=== PATIENT | female | born 1980 | race Caucasian/White ===

== ENCOUNTER → 2019-11-23 16:09 | Outpatient (BNVA) | payer SELFPAY | PROVIDERS: Family Provider Family Medicine; PCP Family Medicine; Visit Provider Obstetrics & Gynecology Female Pelvic Medicine and Reconstructive Surgery | DX: Z12.4 Encounter for screening for malignant neoplasm of cervix (principal); N92.0 Excessive and frequent menstruation with regular cycle | CPT/HCPCS: 81003 ==

== ENCOUNTER → 2019-11-30 15:08 | Outpatient (BNVA) | payer SELFPAY | PROVIDERS: Family Provider Family Medicine; PCP Family Medicine; Referring Provider Obstetrics & Gynecology Female Pelvic Medicine and Reconstructive Surgery; Visit Provider Obstetrics & Gynecology Female Pelvic Medicine and Reconstructive Surgery | DX: N92.0 Excessive and frequent menstruation with regular cycle (principal); N85.2 Hypertrophy of uterus | CPT/HCPCS: 76830 ==

== ENCOUNTER → 2020-01-17 13:26 | Outpatient (BNVA) | payer OTHER, SELFPAY | PROVIDERS: Family Provider Family Medicine; PCP Family Medicine; Visit Provider Obstetrics & Gynecology | DX: N93.9 Abnormal uterine and vaginal bleeding, unspecified (principal) | CPT/HCPCS: 81025 ==

== ENCOUNTER → 2020-03-28 10:27 | Outpatient (BNVA) | payer OTHER, SELFPAY | PROVIDERS: Family Provider Family Medicine; PCP Family Medicine; Visit Provider Nurse Practitioner Psychiatric/Mental Health | DX: Z79.899 Other long term (current) drug therapy (principal) | CPT/HCPCS: 80053; 80061; 83036 ==

== ENCOUNTER → 2020-08-14 10:35 | Outpatient (BNVA) | payer SELFPAY | PROVIDERS: Family Provider Family Medicine; PCP Family Medicine; Visit Provider Family Medicine | DX: R30.0 Dysuria (principal) | CPT/HCPCS: 81000; 81003; 87077; 87086; 87184 ==

== ENCOUNTER → 2020-12-19 10:24 | Outpatient (BNVA) | payer SELFPAY | PROVIDERS: Family Provider Family Medicine; PCP Family Medicine; Visit Provider Nurse Practitioner | DX: M25.562 Pain in left knee (principal) | CPT/HCPCS: 73562 ==

== ENCOUNTER → 2021-05-06 10:02 | Outpatient (BNVA) | payer OTHER, SELFPAY | PROVIDERS: Family Provider Family Medicine; PCP Family Medicine; Visit Provider Nurse Practitioner Psychiatric/Mental Health | DX: Z79.899 Other long term (current) drug therapy (principal) | CPT/HCPCS: 80053; 80061; 83036; 85025 ==

== ENCOUNTER 2021-12-27 13:39 | Outpatient (CLI) | payer OTHER, SELFPAY ==
--- NOTE | 2021-12-27 13:50 | MM_ITS ---
WS: [id number] BILATERAL SCREENING 3D TOMOSYNTHESIS DIGITAL MAMMOGRAM WITH CAD HISTORY: SCREENING COMPARISON: None available. Bilateral CC and MLO views submitted. Computer aided detection analyzed. Breast composition: The breasts are heterogeneously dense, which may obscure small masses. No suspici ous masses, microcalcifications or architectural distortion. Scattered asymmetries with no associated mass within each breast. No suspicious calcification. MM/[place] [id number] IMPRESSION: BI-RADS: 2-Benign FOLLOW UP: 1 Year Follow-up
== END 2021-12-27 13:40 | disposition home or self-care (01) ==
PROVIDERS: Family Provider Family Medicine; PCP Family Medicine Adult Medicine
DX: Z12.31 Encounter for screening mammogram for malignant neoplasm of breast (principal)
CPT/HCPCS: 77063; 77067

== ENCOUNTER 2022-05-14 16:47 | Outpatient (CLI) | payer OTHER, SELFPAY ==
[2022-05-14 17:45] LABS: Alanine Aminotransferase 13 U/L (0-33); Albumin Level 3.7 g/dL (3.5-5.2); Alkaline Phosphatase 58 U/L (35-105); Anion Gap 17.6 (5-19); Aspartate Amino Transferase 13 U/L (0-32); Blood Urea Nitrogen 7 mg/dL (6-20); Calcium 8.3 mg/dL (8.5-10.5); Carbon Dioxide 22 mmol/L (22-29); Chloride 102 mmol/L (98-107); Chol HDL Ratio 3.88 mg/dL (0.0-4.40); Cholesterol 132 mg/dL (0-200); Globulin 3.4 g/dL (1.3-4.6); Glomerular Filtration Rate 92.7 mL/min (90-130); Glucose 82 mg/dL (65-115); HDL Cholesterol 34 mg/dL (60-100); LDL Cholesterol Calculated 73 mg/dL (50-129); LDL HDL Ratio 2.15 RATIO (0.00-3.22); Osmolality Calculated 283 mOsm/kg (285-295); Potassium 3.6 mmol/L (3.5-5.1); Sodium 138 mmol/L (136-145); Total Bilirubin 0.2 mg/dL (0.15-1.2); Total Protein 7.1 g/dL (6.6-8.7); Triglycerides 125 mg/dL (0-150)
[2022-05-14 18:08] LABS: Estmated Average Glucose 128; Hemoglobin A1C 6.1 % (4.0-6.0)
== END 2022-05-14 16:48 | disposition home or self-care (01) ==
LOC: LAB 16:54
PROVIDERS: Family Provider Family Medicine; PCP Family Medicine Adult Medicine; Visit Provider Nurse Practitioner Psychiatric/Mental Health
DX: Z79.899 Other long term (current) drug therapy (principal)
CPT/HCPCS: 80053; 80061; 83036

== ENCOUNTER 2022-07-15 14:52 | Emergency (ER) | payer SELFPAY ==
[2022-07-15 15:44] VITALS: BP 156/125; PULSE 68; RESP 18; TEMP 36.7; O2SAT 98; BMI 32.3
--- NOTE | 2022-07-15 17:30 | ED_ITS ---
HPI - General Adult General: Chief complaint: General Medical Stated complaint: UC sent for possible blood clot Time Seen by Provider: 07/15/22 17:06 History of Present Illness: Patient reports reddened area on her right upper abdomen lower rib cage that she noticed approximately a week ago. She reports it has been slowly worsening and started to hurt today. She did try to go to her doctor's office today. She reports that they told her she needed to go to the ER because it could be a blood clot. She reports that they did not examine her there. Review of Systems Const: Denies: fever(s), chills or body aches Skin/Breast: Reports: other (Pain, redness, swelling to an area on the right upper abdomen) PFSH ED PFSH: Medical History Abdominal cramping Abdominal pain Asthma Autism spectrum disorder Dyslipidemia Hearing impaired Major depressive disorder, recurrent episode, moderate with anxious distress Menorrhagia with regular cycle ALKA on CPAP POTS (postural orthostatic tachycardia syndrome) Psychiatric care PTSD (post-traumatic stress disorder) Surgical History delivery delivered X3 Hx of tonsillectomy 1986 Family History Father Cancer, Onset Age: 52 Prostate with [place] to bones and brain Grandmother Cancer, Onset Age: 35 breast Cancer still living at age 90 Grandmother Cancer, Onset Age: 30 pancreatic cancer Social History Smoking and tobacco status: never smoked Alcohol intake: never Marital status: Number of children: 3 Current occupational status: unemployed 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 There is a pinpoint area centrally that appears to be a blackhead. No fluctuance appreciated. Course Vital Signs: Vital signs: Vital Signs Temperature 98.1 F 07/15/22 15:44 Pulse Rate 68 07/15/22 15:44 Respiratory Rate 18 07/15/22 15:44 Blood Pressure 156/125 07/15/22 15:44 Pulse Oximetry 98 07/15/22 15:44 Oxygen Delivery Me thod 07/15/22 15:44 MDM - General Adult Medical Decision Making Consider abscess versus cellulitis. Advised the patient that I am not concerned about a DVT in this area of her body. There is no fluctuance noted on palpation at this time. Will place patient on antibiotic and encourage warm moist compresses 3-4 times daily to help with this to drain. Follow-up with primary care provider in 48 to 72 hours if symptoms are persisting or not improving. Return to the ER for new or worsening symptoms. Discharge Plan Discharge Patient Disposition: Home Clinical Impression: Abscess Condition: Stable Prescriptions: New cephalexin 500 mg capsule 500 mg PO BID 7 Days Qty: 14 0RF No Action quetiapine [Seroquel] 25 mg tablet 25 mg PO BID PRN (Reason: agitation/anxiety) Qty: 180 2RF Rx Instructions: Take one tablet twice per day as needed for agitation/anxiety albuterol sulfate 90 mcg/actuation HFA aerosol inhaler 2 puff INHALATION Q6H PRN (Reason: shortness of breath) Qty: 17 3RF calcium polycarbophil [FiberCon] 625 mg tablet 1,250 mg PO BID Qty: 120 5RF dicyclomine 20 mg tablet 20 mg PO .q8 PRN (Reason: abdominal cramping/pain) Qty: 30 2RF clonidine HCl 0.1 mg tablet 0.1 mg PO DAILY PRN (Reason: tics) Qty: 30 1RF Rx Instructions: Take half to one tablet daily as needed for tics quetiapine [Seroquel XR] 150 mg tablet extended release 24 hr 150 mg PO .7 pm Qty: 90 2RF Rx Instructions: Take one tablet at 7 pm norgestimate-ethinyl estradiol [Sprintec (28)] 0.25-35 mg-mcg tablet 1 tab PO DAILY Qty: 28 0RF Rx Instructions: RBVO Dr. Isaac/Sal Goodman RN atorvastatin 10 mg tablet See Rx Instructions .ROUTE .COMPLEX Qty: 30 5RF Dose Instruction: TAKE 1 TABLET BY MOUTH EVERY DAY FOR cholesterol lowering Rx Instructions: TAKE 1 TABLET BY MOUTH EVERY DAY FOR cholesterol lowering metoprolol tartrate 50 mg tablet 50 mg PO BID Qty: 180 2RF amlodipine 5 mg tablet 5 mg PO DAILY Qty: 90 3RF Discharge Orders: Discharge ED (Routine); Ordered 07/15/22 Ordered By: Ynes Otto Referrals: Blanco Vega MD [Primary Care Provider] - Discharge Diet: Usual diet Discharge Activity: Resume usual activity Patient Instructions: Abscess (ED) Activity Restrictions/Additional Instructions: Take antibiotics as directed and complete the entire prescription. Use warm moist compresses to the area of concern 3-4 times per day. This will help blood flow to the area. The abscess may start to drain and that is okay. Follow-up with your primary care provider if symptoms or not resolving over the next 48 hours. Return to the ER for any new or worsening symptoms. 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
== END 2022-07-15 17:42 | disposition home or self-care (01) ==
PROVIDERS: Emergency Provider Nurse Practitioner Family; PCP Family Medicine Adult Medicine
DX: L02.211 Cutaneous abscess of abdominal wall (principal)
CPT/HCPCS: 99283

== ENCOUNTER 2023-05-21 06:22 | Inpatient (IN) | payer SELFPAY ==
[2023-05-21] VITALS (33 sets, daily range): BP systolic 118–187; BP diastolic 72–108; PULSE 90–125; RESP 12–25; TEMP 36.1–37.3; O2SAT 94–98; BMI 32.3
--- NOTE | 2023-05-21 06:25 | ED_ITS ---
HPI - General Adult General: Chief complaint: Altered Mental Status Stated complaint: AMS Time Seen by Provider: 05/21/23 06:23 Source: EMS Mode of arrival: EMS Limitations: altered mental status History of Present Illness: 42-year-old female brought in by EMS with altered mental status evidently she w as found on the floor by her around 5 AM decreased responsiveness. Initially EMS reported she would answer question shaking her head yes or no but did not have any response when we seen her. She was spitting evidently nurses had placed a mask on her. Initially when I seen the patient and took the mask off and asked the nurse about the mask immediately after the nurse mentioned her spitting she spit. Cannot get her to respond in any way. Her eyes are open but she does not respond verbally. She does respond to noxious stimuli. There is no evidence of injury no active bleeding no skin breakdown ulceration or deformity no evidence of head trauma. When repositioned to a sitting position by the nurse and myself in the gurney she does support her head. Patient continues to spit up saliva. arrived stated that yesterday she had complained of symptoms of bladder infection took some [id number] Azo's for that. This morning he found her underneath the massage table she had moved things out from underneath that they had used this table in quite some time and she was laying under it seemingly rigid with dried saliva on the right side of her cheek. He was unable to wake her and ultimately called 911. Onset (ago): unknown Review of Systems General: Reports: ROS unobtainable due to mental status [facility] ED PFSH: Medical History Agoraphobia with panic attacks Asthma Autism spectrum disorder Dyslipidemia Hearing impaired Major depressive disorder, recurrent episode, moderate with anxious distress Menorrhagia with regular cycle ALKA on CPAP POTS (postural orthostatic tachycardia syndrome) Psychiatric care PTSD (post-traumatic stress disorder) Surgical History delivery delivered X3 Hx of tonsillectomy 1986 Family History Father Cancer, Onset Age: 52 Prostate with [place] to bones and brain Grandmother Cancer, Onset Age: 35 breast Cancer still living at age 90 Grandmother Cancer, Onset Age: 30 pancreatic cancer Social History Smoking and tobacco status: never smoked Alcohol intake: never Substance/Drug Use: never Marital status: Number of children: 3 Current occupational status: unemployed 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 Reproductive History: Para: 3 Physical Exam Const: GENERAL APPEARANCE: lethargic ORIENTATION/CONSCIOUSNESS: Yes confused and Yes lethargic HENMT: COMMON NORMALS: normocephalic, atraumatic and hearing grossly normal bilaterally HEAD & SCALP: normocephalic and atraumatic Resp: COMMON NORMALS: normal respiratory effort, No retractions, No use of accessory muscles and clear to auscultation bilaterally AUSCULTATION: clear to auscultation bilaterally Cardio: COMMON NORMALS: regular rate, regular rhythm and No murmurs present (Cardio) RATE: regular rate RHYTHM: regular rhythm GI: COMMON NORMALS: Soft to palpation and No hepatosplenomegaly present AUSCULTATION: Yes normoactive bowel sounds PALPATION: Yes Soft to palpation, No Tenderness to palpation present (GI), No Guarding due to palpation present (GI) and Yes No hepatosplenomegaly present Extremity: COMMON NORMALS: normal to inspection, capillary refill normal, no clubbing, cyanosis or edema, no calf tenderness and no pedal edema Neuro: SENSORIUM/ORIENTATION: Yes lethargic Skin: COMMON NORMALS: no rashes or lesions noted GENERAL SKIN EXAM: no rashes or lesions noted Course Vital Signs: Vital signs: Vital Signs Temperature 97.0 F L 05/21/23 06:25 Pulse Rate 105 H 05/21/23 13:00 Respiratory Rate 15 05/21/23 13:00 Blood Pressure 155/83 05/21/23 14:00 Pulse Oximetry 96 05/21/23 13:00 Oxygen Delivery Me thod Room Air 05/21/23 10:56 [facility] - General Adult Medical Decision Making Patient was able to be coached out of some of the behaviors like spitting episodes she does have an elevated white count but no signs of infection CT of the abdomen and chest were negative chest x-ray negative. Long discussion with Dr. Stoddard reviewed the chart together will admit to the hobs may ultimately need to psych consultation. She does have some metabolic acidosis we have given her fluids we will need to repeat labs on the floor. I also talk to Dr. Gomez she recommends EEG which were making arrangements for. Talk to her the patient's at the bedside he did not see anything that looks like she had had a grand mall seizure but he thought maybe she had some sort of absents seizure where she stared off into space. Medical Records I reviewed the patient's medical records. Lab Data I reviewed the patient's lab results. 05/21/23 06:37 05/21/23 11:48 Laboratory Results WBC 21.14 10^3/uL (3.29-11.43) H 05/21/23 06:37 RBC 5.18 10^6/uL (3.85-5.65) 05/21/23 06:37 Hgb 14.30 g/dL (11.27-16.99) 05/21/23 06:37 Hct 43.1 % (36-47) 05/21/23 06:37 MCV 83.2 fl (85-98) L 05/21/23 06:37 MCH 27.6 pg (27-33) 05/21/23 06:37 MCHC 33.2 g/dL (30-55) 05/21/23 06:37 RDW 13.1 % (12.1-15.1) 05/21/23 06:37 Plt Count 531 10^3/cmm (157-399) H 05/21/23 06:37 MPV 10.1 fL (7.4-10.4) 05/21/23 06:37 Neut % (Auto) 85.1 % 05/21/23 06:37 Lymph % (Auto) 10.5 % 05/21/23 06:37 Martin % (Auto) 3.7 % 05/21/23 06:37 Eos % (Auto) 0.0 % 05/21/23 06:37 Baso % (Auto) 0.2 % 05/21/23 06:37 Neut # (Auto) 17.98 10^3/uL (1.8-7.7) H 05/21/23 06:37 Lymph # (Auto) 2.2 10^3/uL (0.8-4.8) 05/21/23 06:37 Martin # (Auto) 0.8 10^3/uL (0.2-0.9) 05/21/23 06:37 Eos # (Auto) 0.0 10^3/uL (0.0-0.8) 05/21/23 06:37 Baso # (Auto) 0.1 10^3/uL (0.0-0.1) 05/21/23 06:37 Nucleated RBC % (auto) 0 % 05/21/23 06:37 Nucleated RBCs # 0.0 /100WBC 05/21/23 06:37 Specimen Type Arterial 05/21/23 07:30 Sample Site Radial, right 05/21/23 07:30 ABG pH 7.36 (7.35-7.45) 05/21/23 07:30 ABG pCO2 31.3 mmHg (35-45) L 05/21/23 07:30 ABG pO2 94.9 mmHg (80.0-100.0) 05/21/23 07:30 ABG HCO3 17.8 mmol/L (22-26) L 05/21/23 07:30 ABG O2 Saturation 98.1 05/21/23 07:30 ABG Base Excess -6.3 mmol/L (-2.0-2.0) L 05/21/23 07:30 [facility] Test Pos 05/21/23 07:30 A-a O2 Gradient 2.0 mmHg (5-10) L 05/21/23 07:30 Hematocrit 44.8 % (37-47) 05/21/23 07:30 Hgb O2 Saturation 97.0 % (95-100) 05/21/23 07:30 Carboxyhemoglobin 0.7 %THgb (0.4-20.1) 05/21/23 07:30 Methemoglobin 0.3 % (0.4-1.5) L 05/21/23 07:30 Total Hemoglobin 14.6 g/dL (12-16) 05/21/23 07:30 Sodium 137.0 mmol/L (131-143) 05/21/23 07:30 Potassium 3.5 mmol/L (3.5-5.0) 05/21/23 07:30 Glucose 156.0 mg/dL (70-115) H 05/21/23 07:30 Ionized Calcium 1.2 mmol/L (1.1-1.4) 05/21/23 07:30 O2 Delivery Device Room air 05/21/23 07:30 FiO2 21.0 % 05/21/23 07:[address] Reporter ID Amh 05/21/23 07:30 Sodium 132 mmol/L (136-145) L 05/21/23 06:37 Potassium 3.6 mmol/L (3.5-5.1) 05/21/23 06:37 Chloride 93 mmol/L (98-107) L 05/21/23 06:37 Carbon Dioxide 18 mmol/L (22-29) L 05/21/23 06:37 Anion Gap 24.6 (5-19) H 05/21/23 06:37 BUN 13 mg/dL (6-20) 05/21/23 06:37 Creatinine 0.8 mg/dL (0.5-0.9) 05/21/23 06:37 GFR Calculation 79.0 mL/min (90-130) L 05/21/23 06:37 Glucose 155 mg/dL (65-115) H 05/21/23 06:37 POC Glucose 169 mg/dL (70-110) H 05/21/23 06:36 Calculated Osmolality 277 mOsm/kg (285-295) L 05/21/23 06:37 Lactic Acid 2.6 mmol/L (0.5-2.2) H 05/21/23 06:37 Lactic Acid (Sepsis) 1.1 mmol/L (0.5-2.2) 05/21/23 09:33 Calcium 9.4 mg/dL (8.5-10.5) 05/21/23 06:37 Magnesium 1.7 mg/dL (1.7-2.3) 05/21/23 06:37 Total Bilirubin 0.6 mg/dL (0.15-1.2) 05/21/23 06:37 AST 17 U/L (0-32) 05/21/23 06:37 ALT 13 U/L (0-33) 05/21/23 06:37 Alkaline Phosphatase 85 U/L (35-105) 05/21/23 06:37 Ammonia 21 umol/L (11-51) 05/21/23 08:32 Creatine Kinase 70 U/L (26-192) 05/21/23 06:37 Troponin T Baseline 11 ng/L (0-10) H 05/21/23 06:37 Troponin T 120 Minute 10.70 ng/L (0-10) H 05/21/23 07:55 Delta Troponin T -0.30 ABS# (0-10) L 05/21/23 07:55 Total Protein 8.5 g/dL (6.6-8.7) 05/21/23 06:37 Albumin 4.6 g/dL (3.5-5.2) 05/21/23 06:37 Globulin 3.9 g/dL (1.3-4.6) 05/21/23 06:37 Lipase 31 U/L (13-60) 05/21/23 06:37 TSH 0.46 uIU/mL (0.27-4.20) 05/21/23 07:55 HCG, Qual Negative (Negative) 05/21/23 06:37 Urine Color Yellow (Yellow) 05/21/23 07:30 Urine Appearance Hazy (CLEAR) A 05/21/23 07:30 Urine pH 5 (5-7) 05/21/23 07:30 Ur Specific [place] 1.030 (1.005-1.030) 05/21/23 07:30 Urine Protein 1+ (Negative) H 05/21/23 07:30 Urine Glucose (UA) Norm (Normal) 05/21/23 07:30 Urine Ketones 3+ (Negative) H 05/21/23 07:30 Urine Blood Neg (Negative) 05/21/23 07:30 Urine Nitrate Negative (Negative) 05/21/23 07:30 Urine Bilirubin Neg (Negative) 05/21/23 07:30 Urine Urobilinogen Norm mg/dL (Negative) 05/21/23 07:30 Ur Leukocyte Esterase Negative (Negative) 05/21/23 07:30 Urine RBC 0-4 /hpf (0-2) H 05/21/23 07:30 Urine WBC 5-10 /hpf (0-5) H 05/21/23 07:30 Ur Squamous Epith Cells 5-10 /hpf (0-5) H 05/21/23 07:30 Amorphous Sediment Not Reportable 05/21/23 07:30 Urine Bacteria 1+ /hpf (NONE) H 05/21/23 07:30 Hyaline Casts 15-25 /lpf H 05/21/23 07:30 Urine Mucus 1+ /hpf 05/21/23 07:30 Salicylates < 0.3 mg/dL (3-10) L 05/21/23 06:37 Urine Opiates Screen Negative ng/mL (Negative) 05/21/23 07:30 Acetaminophen < 5.0 ug/mL (10-30) L 05/21/23 06:37 Ur Barbiturates Screen Negative ng/mL (Negative) 05/21/23 07:30 Ur Phencyclidine Scrn Negative ng/mL (Negative) 05/21/23 07:30 Ur Amphetamines Screen Negative ng/mL (Negative) 05/21/23 07:30 U Benzodiazepines Scrn Negative ng/mL (Negative) 05/21/23 07:30 Urine Cocaine Screen Negative ng/mL (Negative) 05/21/23 07:30 U Marijuana (THC) Screen Positive ng/mL (Negative) H 05/21/23 07:30 Ethyl Alcohol < 10 mg/dL (0-10) 05/21/23 06:37 Serum Ketones Negative (Negative) 05/21/23 06:37 Discharge Plan Discharge Patient Disposition: Admitted As Inpatient Admit Provider: Artem Pham Clinical Impression: Acute encephalopathy, Metabolic acidosis, Autism spectrum disorder Condition: Stable Coding Level of Care Code ED [employer]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
--- NOTE | 2023-05-21 06:35 | XR_ITS ---
WS: [id number] Exam: XR chest 1V portable [id number] Date/Time of Exam: 05/21/2023 6:35 AM Reason For Exam: dyspnea/cough Comparison 10/07/2018. Findings: The lungs are clear and fully expanded. Costophrenic angles are sharp. No infiltrates. Bronchovascula r relief appears normal. Cardiac silhouette is unremarkable. Bony elements are intact. IMPRESSION: Unremarkable chest radiograph.
--- NOTE | 2023-05-21 06:35 | CT_ITS ---
WS: [id number] CT HEAD NONCONTRAST HISTORY: AMS TECHNIQUE: Contiguous axial imaging performed through the brain in 2.5 mm imaging. Bone and soft tiss ue windows. Sagittal and coronal reformats reviewed. All CT scans at [facility] use at least one of these dose optimization techniques: automated exposure control; mA and/or kV adjustment per pa tient size (includes targeted exams where dose is matched to clinical indication); or iterative recon struction. DLP: 1257.43 mGy.cm COMPARISON: 06/11/2010 Mild motion artifact. No areas of hemorrhage or edema identified. Small areas of acute blood product may be obscured with this amount of motion. No atrophy or prior infarcts or herniation. Ventricles: Normal size with no hydrocephalus. Mild inferior displacement of the cerebellar tonsils. Paranasal sinuses: Moderate mucoperiosteal thickening throughout the ethmoid and sphenoid sinuses. Sm all amount of mucoperiosteal thickening in the RIGHT maxillary sinus. Mucous retention cyst LEFT maxi llary sinus. Mastoid air cells: Well pneumatized. Calvarium and scalp: Skull is intact with no soft tissue edema or swelling. IMPRESSION: 1. Imaging is slightly degraded by motion artifact. 2. No hemorrhage or edema identified. 3. Mild cerebellar ectopia. No obstructive hydrocephalus. 4. Moderate mucoperiosteal sinus disease.
--- NOTE | 2023-05-21 06:36 | ECG_ITS ---
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 Measurements Intervals [place] Rate: 113 P: 62 OK: 118 QRS: 7 QRSD: 86 T: 7 QT: 310 QTc: 426 Interpretive Statements SINUS TACHYCARDIA WITH SHORT OK INTERVAL POSSIBLE LEFT ATRIAL ENLARGEMENT [-0.1mV P-WAVE IN V1/V2] NONSPECIFIC T-WAVE ABNORMALITY Compared to ECG 10/07/2018 17:02:54 Short OK interval now present T-wave abnormality now present Sinus rhythm no longer present Electronically Signed On 05-21-2023 10:13:23 CDT by Luke Jaime M.D. [email or web address]
[2023-05-21 06:39] LABS: Glucose Point of Care 169 mg/dL (70-110)
[2023-05-21 06:47] LABS: Basophils # 0.1 10^3/uL (0.0-0.1); Basophils % 0.2 %; Hematocrit 43.1 % (36-47); Lymphocytes # 2.2 10^3/uL (0.8-4.8); Lymphocytes % 10.5 %; Mean Corpuscular HGB Conc 33.2 g/dL (30-55); Mean Corpuscular Hemoglobin 27.6 pg (27-33); Mean Corpuscular Volume 83.2 fl (85-98); Mean Platelet Volume 10.1 fL (7.4-10.4); Monocytes # 0.8 10^3/uL (0.2-0.9); Monocytes % 3.7 %; Neutrophils # 17.98 10^3/uL (1.8-7.7); Neutrophils % 85.1 %; Nucleated Red Blood Cells % 0 %; Platelet Count 531 10^3/cmm (157-399); Red Blood Count 5.18 10^6/uL (3.85-5.65); Red Cell Distribution Width 13.1 % (12.1-15.1); White Blood Count 21.14 10^3/uL (3.29-11.43)
[2023-05-21 06:55] LABS: Ketone (Acetest) Serum Negative (Negative)
[2023-05-21 06:58] LABS: HCG, Serum Qual Negative (Negative)
[2023-05-21 07:04] LABS: Lactic Sepsis W/Reflex 2.6 mmol/L (0.5-2.2)
[2023-05-21 07:05] LABS: Alanine Aminotransferase 13 U/L (0-33); Albumin Level 4.6 g/dL (3.5-5.2); Alkaline Phosphatase 85 U/L (35-105); Anion Gap 24.6 (5-19); Aspartate Amino Transferase 17 U/L (0-32); Blood Urea Nitrogen 13 mg/dL (6-20); Calcium 9.4 mg/dL (8.5-10.5); Carbon Dioxide 18 mmol/L (22-29); Chloride 93 mmol/L (98-107); Globulin 3.9 g/dL (1.3-4.6); Glucose 155 mg/dL (65-115); Lipase 31 U/L (13-60); Magnesium 1.7 mg/dL (1.7-2.3); Osmolality Calculated 277 mOsm/kg (285-295); Potassium 3.6 mmol/L (3.5-5.1); Sodium 132 mmol/L (136-145); Total Bilirubin 0.6 mg/dL (0.15-1.2); Total Protein 8.5 g/dL (6.6-8.7); Troponin(5th) Baseline 11 ng/L (0-10)
[2023-05-21 07:06] LABS: Acetaminophen < 5.0 ug/mL (10-30); Alcohol Level < 10 mg/dL (0-10); Salicylate < 0.3 mg/dL (3-10)
[2023-05-21 07:42] LABS: ABG PCO2 31.3 mmHg (35-45); ABG PH Result 7.36 (7.35-7.45); Arterial Blood Gas Hematocrit 44.8 % (37-47); Base Excess ABG -6.3 mmol/L (-2.0-2.0); Blood Gas Allen Test Pos; Blood Gas Operator Identificat AMH; Blood Gas Sample Site Radial, right; Blood Gas Sample Type Arterial; Carboxyhemoglobin 0.7 %THgb (0.4-20.1); HCO3 ABG 17.8 mmol/L (22-26); Ionized Calcium Level - ABG 1.2 mmol/L (1.1-1.4); Methemoglobin 0.3 % (0.4-1.5); Oxygen Device ROOM AIR; Oxygen Saturation ABG 98.1; PO2 ABG 94.9 mmHg (80.0-100.0); Potassium Level - ABG 3.5 mmol/L (3.5-5.0); Total Hemoglobin 14.6 g/dL (12-16)
[2023-05-21] MEDS: sodium chloride 0.9% 1,000 ML 999 ML IV (07:42)
[2023-05-21] MEDS: promethazine 25 mg/mL SDV 1 mL IM (08:09)
[2023-05-21 08:11] LABS: Protein Urine 1+ (Negative); Urine Appearance Hazy (CLEAR); Urine Color Yellow (Yellow); pH Urine 5 (5-7)
[2023-05-21 08:12] LABS: Add Urine Microscopic? YES; Amphetamines Screen Urine Negative (Negative); Bacteria Urine 1+ /hpf; Barbiturates Screen Urine Negative (Negative); Benzodiazepines Screen Urine Negative (Negative); Bilirubin Urine Neg (Negative); Blood Urine Neg (Negative); Cocaine Screen Urine Negative (Negative); Glucose Urine UA Norm (Normal); Ketones Urine 3+ (Negative); Leukocyte Esterase Urine Negative (Negative); Nitrate Urine Negative (Negative); Opiate Screen Urine Negative (Negative); PCP Screen Urine Negative (Negative); RBC Urine 0-4 /hpf (0-2); THC Screen Urine Positive (Negative); Urobilinogen Urine Norm (Negative)
[2023-05-21 08:13] LABS: Add Urine Culture? No; Hyaline Casts Urine 15-25 /lpf; Mucus Urine 1+ /hpf
[2023-05-21] MEDS: cefTRIAXone 1,000 MG in sodium chloride 0.9% (plus) 50 ML 100 MG IV (08:24)
--- NOTE | 2023-05-21 08:28 | PC.NURSE ---
DR PRATT ORDERED VERSED FOR CONSCIOUS SEDATION DUE TO PATIENT DECREASED LOC, CONFUSED, AND SPITTING. CT WAS DELAYED DUE TO PATIENT SPITTING AND CT DECLINED DUE TO PRECAUTION FOR ASPIRATION. PATIENT HAS BEEN FOAMING/SPITTING AT THE MOUTH. NURSE HAD IV VERSED READY AND PATIENT OPENED HER EYES BUT NOT VERBAL. NURSE FOLLOWED PATIENT TO CT TO EMPLOYMENT AND CLAIMS AIDE PATIENT TO HOLD STILL FOR CT AND NOT TO SPIT. PATIENT DID NOT SPIT WHILE CT WAS BEING DONE. AFTER CT WAS DONE AND PATIENT WAS TRANSFER BACK TO ED BED, PATIENT STARTED FOAMING/SPITTING AGAIN.
[2023-05-21 08:33] LABS: Reflex Lactate Order REFLEX LACTIC ORDERD
--- NOTE | 2023-05-21 08:36 | ECG_ITS ---
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 Measurements Intervals [place] Rate: 113 P: 54 NV: 132 QRS: 4 QRSD: 83 T: -18 QT: 364 QTc: 499 Interpretive Statements SINUS TACHYCARDIA MINIMAL VOLTAGE CRITERIA FOR LVH, CONSIDER NORMAL VARIANT [MEETS CRITERIA IN ONE OF: R(aVL), S(V1), R(V5), R(V5/V6)+S(V1)] MODERATE T-WAVE ABNORMALITY, CONSIDER ANTEROLATERAL ISCHEMIA [-0.1+ mV T-WAVE IN V3-V6] Compared to ECG 05/21/2023 06:25:45 Possible ischemia now present Short NV interval no longer present T-wave abnormality still present Electronically Signed On 05-21-2023 10:13:50 CDT by Luke Jaime M.D. [id number]
[2023-05-21 08:39] LABS: Creatine Phosphokinase 70 U/L (26-192)
--- NOTE | 2023-05-21 08:41 | PC.PHAR ---
pt unable to verify medications-pts states he is unsure of what all medications the pt takes-medications entered are meds that [facility] states they have filled- notes are made in the pharmacy comments of last filled dates-[facility] [place] [facility] rx on hold for dicyclomine 20mg q8h prn written 12/23/22 and fibercon 625mg 2 tabs bid prn written 01/23/23-[facility] states clonidine 0.1mg daily prn tics filled 07/29/23 90d/s and quetiapine 25mg bid prn filled 07/29/23 90d/s states both have refills-niacin er 250mg last filled 12/23/22 20d/s-
[2023-05-21 08:54] LABS: Ammonia 21 umol/L (11-51)
--- NOTE | 2023-05-21 09:03 | CT_ITS ---
WS: [id number] CT ABDOMEN AND PELVIS NONCONTRAST HISTORY: Abdominal pain TECHNIQUE: Imaging performed through the abdomen and pelvis. Coronal and sagittal reformats are submi tted. All CT scans at [facility] use at least one of these dose optimization techniques: auto mated exposure control; mA and/or kV adjustment per patient size (includes targeted exams where dose is matched to clinical indication); or iterative reconstruction. DLP: 983.38 mGy.cm COMPARISON: None available. Lower thorax: Lung bases are clear. Visualized heart is normal. No hiatal hernia. Liver: Normal size liver. No mass or bile duct dilatation. Gallbladder: Gallbladder is not identified. Pancreas: Normal size and attenuation. Normal pancreatic duct. No pancreatitis or mass. Spleen: Normal. Adrenal glands: Normal. No mass. Right kidney: Normal size kidney. Low-attenuation 2.2 x 1.4 cm mass in the central renal pelvis. This may be a parapelvic cyst. There is no renal obstruction. Left kidney: Normal size kidney with no mass or hydronephrosis. Aorta: Normal abdominal aorta, no aneurysm or atherosclerosis. No free fluid, intraperitoneal air or significant lymphadenopathy. GI tract: Normal noncontrast imaging of the stomach, small bowel and colon. No obstruction or wall th ickening. Appendix is not definitely identified. No inflammatory or secondary findings of appendiciti s. Abdominal wall: Negative. No hernia. Pelvis: Nondistended urinary bladder. There is a Roblero catheter in the bladder. Uterus and ovaries ar e identified and unremarkable by CT. Osseous structures: Unremarkable. IMPRESSION: 1. No acute abdominal or pelvic abnormalities are identified. 2. No free air or ascites. 3. Roblero catheter in a nondistended bladder. 4. No renal obstruction. 5. Low-attenuation lesion in the RIGHT kidney measures 2.2 x 1.4 cm. This is probably a cyst. This c an be further evaluated by ultrasound.
--- NOTE | 2023-05-21 09:15 | PC.NURSE ---
PER [place] [facility] VERSED SINCE PATIENT OPENED HER EYES
[2023-05-21] MEDS: OLANZapine 10 mg VIAL 5 MG IM ×2 (09:55→21:43)
[2023-05-21] MEDS: sodium chloride 0.9% 1,000 ML 175 ML IV ×2 (09:58→21:43)
[2023-05-21 09:59] LABS: Lactic Acid level (Lactate) 1.1 mmol/L (0.5-2.2)
--- NOTE | 2023-05-21 10:07 | P.HP_ITS ---
Providers/Chief Complaint Admitting Physician: Artem Pham MD Primary Care Provider: Blanco Vega MD Chief Complaint: AMS History of Present Illness Georgette Reid is a 42 year old female presents to the hospital by EMS with her with decreased responsiveness. He reports that yesterday she was doing well, but did complain of slight concerns of a UTI, and took some Azo. When they went to bed he thought everything was okay. This morning at 5 AM he awoke, she was not in bed. She had cleaned out some material underneath the massage table and was laying there with spittle on the right side of her mouth. She was not responding normally to him, just spitting repetitively. He called EMS. Since arriving in the emergency department she has not been verbally responsive. She has occasionally stopped spitting on instruction, to allow for a CT. She was able to open her eyes slightly for me for short amount of time. She was able to move her upper extremities, both, spontaneously while I was in the room. No history of any recent migraines, illnesses. Apparently saw neurology in the past for staring spells. Has never been on any seizure medicine. Past medical history significant for autistic spectrum disorder, migraines, hypertension, depression, agoraphobia, POTS. reports she has a significant stressful life at home. They also have 3 children with autistic spectrum disorder. 1 dose of Rocephin, 1 g, given empirically in the emergency department. Versed was not given, order held. Review of Systems General: Reports: ROS unobtainable due to medical condition Medications/Allergies Home Medications Medication Instructions Recorded Confirmed Last Taken Type amlodipine 5 mg tablet 5 mg PO DAILY #90 tabs 07/04/22 05/21/23 Unknown Rx clonidine HCl 0.1 mg tablet 0.1 mg PO DAILY PRN tics #90 tabs 07/29/22 05/21/23 Unknown Rx albuterol sulfate 90 mcg/actuation 2 puff inhalation Q6H PRN 12/23/22 05/21/23 Unknown Rx aerosol inhaler shortness of breath #17 grams atorvastatin 10 mg tablet 10 mg PO DAILY 90 days #90 tabs 12/23/22 05/21/23 Unknown Rx montelukast 10 mg tablet 10 mg PO DAILY Asthma #90 tabs 12/23/22 05/21/23 Unknown Rx (Singulair) calcium polycarbophil 625 mg 1,250 mg PO BID PRN for abdomen 01/23/23 05/21/23 Unknown History tablet (FiberCon) health metoprolol tartrate 50 mg tablet 50 mg PO BID #180 tabs 03/16/23 05/21/23 Unknown Rx dicyclomine 20 mg tablet 20 mg PO Q8H PRN abdominal 05/21/23 05/21/23 Unknown History cramping/pain escitalopram oxalate 10 mg tablet 10 mg PO QAM 05/21/23 05/21/23 Unknown History (Lexapro) niacin 250 mg tablet,extended See Rx Instructions .Route 05/21/23 05/21/23 Unknown History release .COMPLEX Low HDL cholesterol quetiapine 25 mg tablet 25 mg PO BID PRN ANXIETY/AGITATION 05/21/23 05/21/23 Unknown History Allergies Allergy/AdvReac Type Severity Reaction Status Date / Time No Known Allergies Allergy Verified 01/06/23 15:18 PFSH Acute PFSH: Medical History Agoraphobia with panic attacks Asthma Autism spectrum disorder Dyslipidemia Hearing impaired Major depressive disorder, recurrent episode, moderate with anxious distress Menorrhagia with regular cycle ALKA on CPAP POTS (postural orthostatic tachycardia syndrome) Psychiatric care PTSD (post-traumatic stress disorder) Surgical History delivery delivered X3 Hx of tonsillectomy 1986 Family History Father Cancer, Onset Age: 52 Prostate with Silvia to bones and brain Grandmother Cancer, Onset Age: 35 breast Cancer still living at age 90 Grandmother Cancer, Onset Age: 30 pancreatic cancer Social History Smoking and tobacco status: never smoked Alcohol intake: never Substance/Drug Use: never Marital status: Number of children: 3 Current occupational status: unemployed 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 Vital signs appear stable. HEENT: Atraumatic normocephalic. Pupils equally round. I do not notice any nystagmus. Oropharynx appears clear although exam was difficult. She withdrew significantly during the exam. Neck is supple no lymphadenopathy thyromegaly Cardiovascular tachycardic, regular, no murmur Lungs clear no wheezing or crackles Abdomen is soft. Bowel sounds are noted. No obvious organomegaly exam is deferred, catheter noted Extremities no cyanosis clubbing or edema, cap refill brisk Skin no rash Neuro: I was not able to get her to cooperate with exam. I do not see any obvious neurological deficits with observation. Urinary Catheter Management: Roblero: Cath Placed During This Visit: yes Urinary Catheter Date of Insertion: 05/21/23 Urinary Catheter Time of Insertion: 07:32 Data 05/21/23 06:37 05/21/23 06:37 Other Labs: ABG pH of 7.36, PCO2 31, PO2 95 on room air Anion gap 25 Calcium, albumin normal Troponin 11 with repeat of 10 Lactic acid 2.6 with repeat of 1.1 Lipase 31 normal hCG negative Creatinine kinase normal at 70 Urinalysis with 5-10 whites but 5-10 squamous UDS positive for THC Ammonia level is normal Abdomen pelvis CT low attenuated lesion right kidney likely cyst otherwise normal Head CT no acute findings, reviewed by me Chest x-ray reviewed by me no infiltrate EKG reviewed by me demonstrates sinus tachycardia, normal axis, nonspecific ST-T wave changes Blood cultures were obtained Micro: Microbiology 05/21/23 07:55 Blood Culture - Preliminary Blood SPECIMEN COLLECTED 05/21/23 07:51 Blood Culture - Preliminary Blood SPECIMEN COLLECTED A&P Assessment and plan (1) Acute encephalopathy: Patient presents with acute encephalopathy. Differential includes infection, although thought less likely. Could also include partial seizure, or even functional disorder. Secondary to her continued agitation, spitting, Zyprexa 5 mg IM was ordered. Admit observation at this point to ICU for close monitoring Arrange for EEG. Seizure precautions Hydration N.p.o. for now Check TSH (2) Metabolic acidosis: Etiology not determined. Hydrating currently. Recheck BMP. Hopefully we will see acidosis clearing. Doubt other alcohol ingestion. (3) Hyponatremia: Mild. Continue to follow. Check TSH (4) Positive urine drug screen: Urine drug screen positive for THS. reports she occasionally takes Gummies. Plan History of POTS. Restart metoprolol when able. According to records this has been well-tolerated. Multiple other medical problems as outlined in past medical history Full code SCDs for DVT prophylaxis. Currently pharmacologic anticoagulation contraindicated, possibly pending need for further procedures. Will be reev aluated intermittently. Attestations Medical Necessity Statement*: Will need less than 2 midnight stay for evaluation and treatment of acute encephalopathy. Diagnoses Acute encephalopathy G93.40 Metabolic acidosis E87.20 Hyponatremia E87.1 Positive urine drug screen R82.5 Time Spent (min) 52
[2023-05-21 11:08] LABS: Thyroid Stimulating Hormone 0.46 uIU/mL (0.27-4.20)
[2023-05-21 12:19] LABS: Blood Urea Nitrogen 10 mg/dL (6-20); Calcium 8.9 mg/dL (8.5-10.5); Carbon Dioxide 20 mmol/L (22-29); Chloride 100 mmol/L (98-107); Creatinine Clr Calc Pharmacy 139.9913; Glomerular Filtration Rate 110.2 mL/min (90-130); Glucose 99 mg/dL (65-115); Osmolality Calculated 279 mOsm/kg (285-295); Sodium 135 mmol/L (136-145)
[2023-05-21 12:22] LABS: Anion Gap 18.6 (5-19); Potassium 3.6 mmol/L (3.5-5.1); Troponin 5 6HR 14.37 ng/L (0-10)
[2023-05-21 12:23] LABS: Troponin 5 6HR Delta 3.37 ng/L (0-12)
--- NOTE | 2023-05-21 15:31 | FL_ITS ---
WS: [id number] LUMBAR PUNCTURE CLINICAL INFORMATION: encephalopathy COMPARISON: None. TECHNIQUE: Informed consent: The procedure and its potential risk and complications were discussed with the sejal ent. Verbal and written consent was obtained. Timeout: A timeout was performed to confirm correct patient, procedure, and site. Patient was prepped and draped in the usual sterile fashion. Lidocaine 1% was used for local anesthes ia. Utilizing fluoroscopic guidance, a 3.5 inch 22-gauge spinal needle was advanced into the subarach noid space at L3-L4 via LEFT oblique sublaminar approach. Free flow of clear CSF was obtained. 6-8 cc of clear CSF was collected and sent the lab for further analysis. FLUOROSCOPIC TIME: 0min [id number] # of spot films: 1 IMPRESSION: Fluoroscopically guided lumbar puncture. No immediate complications
[2023-05-21] MEDS: LORazepam 2 mg/mL INJ 1 mL 1 MG IVP (16:02)
[2023-05-21 17:22] LABS: Cyto Order Verification No Order
[2023-05-21 17:24] LABS: Mononuclear WBC CSF % 0 % (50-90); Polynuclear Cells ,CSF # 0.001 10^3/uL (0-10); Polynuclear WBC CSF % 100 % (0-10); Red Blood Cell CSF 0 10^3/uL (0-0); White Blood Cell CSF 1 /uL (0-5)
[2023-05-21 17:26] LABS: Appearance CSF CLEAR (CLEAR); Color CSF COLORLESS (COLORLESS); Pathology Referral Yes
--- NOTE | 2023-05-21 17:50 | P.CONIM_ITS ---
Providers/Reason For Consult Consulting Physician/Specialty*: dr hammonds Reason for Consult*: Encephalopathy/repetitive spitting Attending Physician: Artem Hammonds MD Primary Care Provider: Blanco Vega MD History of Present Illness History of Present Illness Georgette Reid is a 42 year old female who presented with atypical seizure- like episodes. There was a strong probability based upon her behavior in the emergency department these were functional but she had a metabolic acidosis and increased white count and Dr. Miguel and I agreed that it would be best for her to be hospitalized. We worked her in for an emergency EEG this afternoon and I examined her. She had atypical findings suggesting functional disorder including forced closure of the eyes, alternating flaccidity and muscle tone that was normal and multiple behaviors that suggested functional problems. She was found on the floor by her around 5:00 this morning. Initially she would answer questions by shaking her head appropriately but when she got into the emergency department she had continuous spitting behavior to the point that the nurses put a mask on her face to limit how far the saliva would travel. Her told Dr. Miguel that he found her underneath the massage table and she had moved everything out from under the table and had saliva all over her cheek. I saw her in 2009 for staring spells and headaches. She felt like someone was pulling her head to the left and she could not move her eyes. Her said she would blackout for 15 or 20 seconds but she felt like she was conscious. More frequently she has spells in front of her children and reports that her children cry and are afraid that her mom he is going to . She had a headache after many of these. Her EEG was normal. MRI showed a Chiari I malformation. 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 Her headaches improved with Depakote. Her staring spells resolved on that medication. I have no other records on her. She follows with Dr. Vega for a variety of complaints and in May 2021 he suggest that she had POTS. That diagnosis was confirmed by Dr. Jaime. She has followed with [facility] for anxiety in the past and an eating disorder. She has a diagnosis of autism. She has posttraumatic stress. Review of Systems Narrative: Review of systems not obtainable as the patient would not communicate. Medications/Allergies Home Medications Medication Instructions Recorded Confirmed Last Taken Type amlodipine 5 mg tablet 5 mg PO DAILY #90 tabs 07/04/22 05/21/23 Unknown Rx clonidine HCl 0.1 mg tablet 0.1 mg PO DAILY PRN tics #90 tabs 07/29/22 05/21/23 Unknown Rx albuterol sulfate 90 mcg/actuation 2 puff inhalation Q6H PRN 12/23/22 05/21/23 Unknown Rx aerosol inhaler shortness of breath #17 grams atorvastatin 10 mg tablet 10 mg PO DAILY 90 days #90 tabs 12/23/22 05/21/23 Unknown Rx montelukast 10 mg tablet 10 mg PO DAILY Asthma #90 tabs 12/23/22 05/21/23 Unknown Rx (Singulair) calcium polycarbophil 625 mg 1,250 mg PO BID PRN for abdomen 01/23/23 05/21/23 Unknown History tablet (FiberCon) health metoprolol tartrate 50 mg tablet 50 mg PO BID #180 tabs 03/16/23 05/21/23 Unknown Rx dicyclomine 20 mg tablet 20 mg PO Q8H PRN abdominal 05/21/23 05/21/23 Unknown History cramping/pain escitalopram oxalate 10 mg tablet 10 mg PO QAM 05/21/23 05/21/23 Unknown History (Lexapro) niacin 250 mg tablet,extended See Rx Instructions .Route 05/21/23 05/21/23 Unknown History release .COMPLEX Low HDL cholesterol quetiapine 25 mg tablet 25 mg PO BID PRN ANXIETY/AGITATION 05/21/23 05/21/23 Unknown History Allergies Allergy/AdvReac Type Severity Reaction Status Date / Time No Known Allergies Allergy Verified 01/06/23 15:18 Current Medications Generic Name Dose Route Start Last Admin Trade Name Freq PRN Reason Stop Dose Admin Sodium Chloride 1,000 mls @ 150 mls/hr 05/21/23 09:45 05/21/23 09:58 Sodium Chloride 0.9% IV 175 mls/hr .Q6H40M EMILIANA Administration PFSH Acute PFSH: Medical History Agoraphobia with panic attacks Asthma Autism spectrum disorder Dyslipidemia Hearing impaired Major depressive disorder, recurrent episode, moderate with anxious distress Menorrhagia with regular cycle ALKA on CPAP POTS (postural orthostatic tachycardia syndrome) Psychiatric care PTSD (post-traumatic stress disorder) Surgical History delivery delivered X3 Hx of tonsillectomy 1986 Family History Father Cancer, Onset Age: 52 Prostate with Silvia to bones and brain Grandmother Cancer, Onset Age: 35 breast Cancer still living at age 90 Grandmother Cancer, Onset Age: 30 pancreatic cancer Social History Smoking and tobacco status: never smoked Alcohol intake: never Substance/Drug Use: never Marital status: Number of children: 3 Current occupational status: unemployed 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 Mental status exam: She would not follow any commands for me but after she got into the EEG suite, she held her head up so that the auto repair technician could attach the leads to her scalp. She closed her eyes tightly so that I could not open her eyes. She was limp as a noodle when I attempted to sit her up and then extended her to trunk slightly to fight this sitting. Cranial nerves: I could not get a look at her eyes as she had vigorous eye closure. She was successfully spitting small amounts of saliva. Behind her lids her eye movements appear random and voluntary. Sensory/motor: I did not feel comfortable doing nailbed stimulation as the patient appeared to be conscious. She did not respond to holding her hand or moving her limbs about. She seemed flaccid but then held her head up for the auto repair technician. Deep tendon reflexes: 2+ throughout. Plantar response flexor bilaterally Gait not tested. We attempted to stand her up and she bent her knees and would have sat on the floor had we not held her up HEENT: Normocephalic. She smells ketotic Neck: Supple. Her neck is not stiff Chest: Clear to auscultation Cardiovascular: S1 and S2 normal without murmur or gallop Abdomen deferred Extremities no rash. Urinary Catheter Management: Roblero: Cath Placed During This Visit: yes Urinary Catheter Date of Insertion: 05/21/23 Urinary Catheter Time of Insertion: 07:32 Data 05/21/23 06:37 05/21/23 11:48 Micro: Microbiology 05/21/23 07:55 Blood Culture - Preliminary Blood SPECIMEN COLLECTED 05/21/23 07:51 Blood Culture - Preliminary Blood SPECIMEN COLLECTED CT Head: My impression: Her CT head was unremarkable. MRI of the brain from 06/17/2010 showed a cystic lesion in the left centrum semiovale. I do not see that on her current CAT scan. She still has low-lying tonsils. A&P Assessment and plan (1) Metabolic acidosis: Metabolic acidosis and I wonder about starvation in a patient with previous hist ory of anorexia nervosa. She smells starved. Dr. Hammonds and I agree that this patient has not previously presented with functional neurologic disorder and that she should be considered to have a metabolic encephalopathy or other cause of encephalopathy until proven otherwise. Dr. Hammonds ordered spinal fluid to be obtained through radiology and it looks like that was completed. CSF was clear and colorless with 1 white cell so there is no sign of COMPOSING MACHINE OPERATOR/TENDER inflammation and that is comforting. I think this is functional versus metabolic. Appropriate work-up is in progress. Her EEG was performed stat and shows normal awake background. (2) Acute encephalopathy: ORDERING PHYSICIAN: Dr. Hammonds/Becca. REASON FOR STUDY: Acute encephalopathy with repetitive spitting behavior. STUDY: This was a 21 channel digital electroencephalogram performed using the 10-20 international system of electrode placement. This study was non-sleep deprived and the patient was awake. Photic stimulation was included. FINDINGS: The waking background was characterized by well-modulated posterior alpha at 9-10 hertz, symmetric and of moderate voltage. Photic stimulation produced a bilateral driving response in the occipital leads without any evidence of a photoconvulsive response. She was not cooperative with hyperventilation No focal, lateralizing or epileptiform activity was seen. IMPRESSION: This was a normal EEG with no epileptiform features to explain the patient's repetitive spitting behavior. There was no focal slowing to implicate epilepsy partialis continua to explain her behavior. Duration of EE minutes (3) Major depressive disorder, recurrent episode, moderate with anxious distress: Coding Level of Care Code Acute Code for [facility] Diagnoses Metabolic acidosis E87.20 Acute encephalopathy G93.40 Major depressive disorder, recurrent episode, moderate with anxious distress F33.1
[2023-05-21 18:13] LABS: Glucose CSF 80 mg/dL (40-70); Total Protein CSF 26 mg/dL (15-45)
[2023-05-22] VITALS (21 sets, daily range): BP systolic 115–166; BP diastolic 68–97; PULSE 74–116; RESP 13–22; TEMP 36.6–37.3; O2SAT 93–97
[2023-05-22] MEDS: sodium chloride 0.9% 1,000 ML 175 ML IV ×3 (01:44→17:56)
[2023-05-22 04:45] LABS: Basophils # 0.1 10^3/uL (0.0-0.1); Basophils % 0.6 %; Eosinophils # 0.2 10^3/uL (0.0-0.8); Eosinophils % 1.4 %; Hematocrit 37.4 % (36-47); Lymphocytes # 2.9 10^3/uL (0.8-4.8); Lymphocytes % 23.5 %; Mean Corpuscular HGB Conc 32.4 g/dL (30-55); Mean Corpuscular Hemoglobin 27.8 pg (27-33); Mean Corpuscular Volume 85.8 fl (85-98); Mean Platelet Volume 10.4 fL (7.4-10.4); Monocytes # 1.2 10^3/uL (0.2-0.9); Monocytes % 9.3 %; Neutrophils # 8.07 10^3/uL (1.8-7.7); Neutrophils % 64.8 %; Nucleated Red Blood Cells % 0 %; Platelet Count 365 10^3/cmm (157-399); Red Blood Count 4.36 10^6/uL (3.85-5.65); Red Cell Distribution Width 13.5 % (12.1-15.1); White Blood Count 12.46 10^3/uL (3.29-11.43)
[2023-05-22 05:06] LABS: Alanine Aminotransferase 10 U/L (0-33); Albumin Level 3.4 g/dL (3.5-5.2); Alkaline Phosphatase 64 U/L (35-105); Anion Gap 14.7 (5-19); Aspartate Amino Transferase 14 U/L (0-32); Blood Urea Nitrogen 11 mg/dL (6-20); Calcium 8.4 mg/dL (8.5-10.5); Carbon Dioxide 22 mmol/L (22-29); Chloride 108 mmol/L (98-107); Globulin 2.6 g/dL (1.3-4.6); Glomerular Filtration Rate 92.2 mL/min (90-130); Glucose 74 mg/dL (65-115); Magnesium 1.9 mg/dL (1.7-2.3); Osmolality Calculated 290 mOsm/kg (285-295); Potassium 3.7 mmol/L (3.5-5.1); Sodium 141 mmol/L (136-145); Total Bilirubin 0.6 mg/dL (0.15-1.2)
[2023-05-22] MEDS: enoxaparin 40 mg/0.4 mL Syringe SUBCUT (08:24)
--- NOTE | 2023-05-22 08:48 | PM.PN ---
Subjective Subjective: Georgette is a little bit better this morning. She awakens to my voice, and can follow directions. She seems to move all of her extremities slow, slower on the left but it is difficult to have an accurate clinical exam. She is able to open her mouth, stick her tongue out. She still producing a little bit of spittle. She denies any complaints of pain other than some pain in her lower back with a lumbar puncture was done. Medications: Reviewed: Yes Vitals/I&O/Wt Last Vital Signs Temp 99 F 05/22/23 03:37 Pulse 74 05/22/23 06:00 Resp 18 05/22/23 05:00 BP 162/97 05/22/23 05:00 Pulse Ox 94 05/22/23 03:00 O2 Del Method Room Air 05/22/23 05:30 05/21/23 05/22/23 05/22/23 22:59 06:59 14:59 Intake Total 1000 / 2050 708.750 / 2758.750 Output Total 900 / 900 400 / 1300 Balance 100 / 1150 308.750 / 1458.750 Weight last 48 hrs Weight 89.902 kg Weight 90.718 kg Physical Exam Narrative: General exam much more alert and responsive No neurologic: Moving all extremities. I have some difficulty getting her to move her left upper extremity as vigorously. No nystagmus. Neck is supple no lymphadenopathy thyromegaly Cardiovascular tachycardic, regular, no murmur Lungs clear no wheezing or crackles Abdomen is soft. Bowel sounds are noted. No obvious organomegaly Extremities no cyanosis clubbing or edema, cap refill brisk Urinary Catheter Management: Roblero: Cath Placed During This Visit: yes Reason for Continuing Indwelling Catheter: Accurate Measurement of Urinary Output in Critically Ill Patients Urinary Catheter Date of Insertion: 05/21/23 Urinary Catheter Time of Insertion: 07:32 Data 05/22/23 03:40 05/22/23 03:40 Micro: Microbiology 05/21/23 07:55 Blood Culture - Preliminary Blood NEGATIVE TO DATE 05/21/23 07:51 Blood Culture - Preliminary Blood NEGATIVE TO DATE A&P Assessment and plan (1) Acute encephalopathy: Patient presents with acute encephalopathy. At this point no evidence for infection. CT abdomen, urinalysis, chest x-ray, lumbar puncture does not reveal any evidence of infection. Partial seizure excluded with normal EEG during events of abnormality Appreciate neurology consultation She did receive several doses of Zyprexa IM yesterday. She appears to be better, but is still not verbal. Arrange for therapy consultations. Changed to regular admission Psychiatric consultation Continue hydration (2) Metabolic acidosis: Resolved (3) Hyponatremia: Mild. TSH normal, resolved (4) Positive urine drug screen: Urine drug screen positive for THS. reports she occasionally takes Gummies. Plan History of POTS. Restart metoprolol when able. According to records this has been well-tolerated. Multiple other medical problems as outlined in past medical history Full code SCDs for DVT prophylaxis. Lovenox added today. Can likely transfer to the floor today. Attestations Medical Necessity Statement*: Needs continued hospitalization for acute encephalopathy, question catatonia with need for psychiatric evaluation and continued treatment. Diagnoses Acute encephalopathy G93.40 Metabolic acidosis E87.20 Hyponatremia E87.1 Positive urine drug screen R82.5 Time Spent (min) 31
[2023-05-23] VITALS (9 sets, daily range): BP systolic 132–156; BP diastolic 81–90; PULSE 86–124; RESP 15–18; TEMP 36.6–37; O2SAT 90–96
[2023-05-23] MEDS: sodium chloride 0.9% 1,000 ML 100 ML IV (05:14)
[2023-05-23 05:25] LABS: Basophils # 0.1 10^3/uL (0.0-0.1); Basophils % 0.4 %; Eosinophils # 0.1 10^3/uL (0.0-0.8); Eosinophils % 0.6 %; Hematocrit 39.3 % (36-47); Lymphocytes # 1.9 10^3/uL (0.8-4.8); Lymphocytes % 11.5 %; Mean Corpuscular HGB Conc 31.8 g/dL (30-55); Mean Corpuscular Hemoglobin 27.3 pg (27-33); Mean Corpuscular Volume 85.8 fl (85-98); Mean Platelet Volume 9.8 fL (7.4-10.4); Monocytes # 1.3 10^3/uL (0.2-0.9); Monocytes % 7.8 %; Neutrophils % 79.2 %; Nucleated Red Blood Cells % 0 %; Platelet Count 383 10^3/cmm (157-399); Red Blood Count 4.58 10^6/uL (3.85-5.65); Red Cell Distribution Width 13.1 % (12.1-15.1); White Blood Count 16.42 10^3/uL (3.29-11.43)
[2023-05-23 06:00] LABS: Alanine Aminotransferase 9 U/L (0-33); Albumin Level 3.3 g/dL (3.5-5.2); Alkaline Phosphatase 76 U/L (35-105); Anion Gap 19.5 (5-19); Aspartate Amino Transferase 15 U/L (0-32); Blood Urea Nitrogen 5 mg/dL (6-20); Calcium 8.4 mg/dL (8.5-10.5); Carbon Dioxide 16 mmol/L (22-29); Chloride 104 mmol/L (98-107); Globulin 3.3 g/dL (1.3-4.6); Glomerular Filtration Rate 110.2 mL/min (90-130); Glucose 84 mg/dL (65-115); Magnesium 1.7 mg/dL (1.7-2.3); Osmolality Calculated 278 mOsm/kg (285-295); Potassium 3.5 mmol/L (3.5-5.1); Sodium 136 mmol/L (136-145); Total Bilirubin 0.7 mg/dL (0.15-1.2); Total Protein 6.6 g/dL (6.6-8.7)
[2023-05-23] MEDS: acetaminophen 325 mg Tablet 650 MG PO (07:56)
[2023-05-23] MEDS: enoxaparin 40 mg/0.4 mL Syringe SUBCUT (07:58)
[2023-05-23] MEDS: amlodipine 5 mg Tablet PO (08:05)
[2023-05-23] MEDS: atorvastatin 40 mg Tablet 20 MG PO (08:05)
[2023-05-23] MEDS: metoprolol tartrate 50 mg Tablet PO (08:05)
--- NOTE | 2023-05-23 08:30 | W.PM.PSYCONS ---
Providers/Reason for Consult Consulting Physican/Specialty*: Isai Jimenez MD/Psychiatry Reason for Consult*: atypical seizures Attending Physician: Artem Pham MD Primary Care Provider: Blanco Vega MD Psych Consult HPI History of Present Illness Georgette Reid is a 42 year old female admitted on 05/21/2023 with concerns of mental status changes and unusual spitting behavior and the patient being selectively unable to answer questions. Patient had been observed briefly yesterday and had been unable to communicate with no meaningful conversation appreciated. However, this morning she appeared to wake up and was communicative fully. She was a good historian on interview. She had stated that she had felt like she was trapped and had some knowledge of being able to hear conversations but felt that she was unable to answer. She had reported having limited memory regarding any details of her hospitalization thus far. The patient on interview had endorsed a history of autistic spectrum disorder with an extended history of having struggles with appropriate peer relationships with significant restricted patterns and problems with sensory issues including tactile issues and texture issues in regards to eating. She had reported a restricted pattern of eating only specific foods. She had not endorsed a past history recently of stereotypies. She had reported that she often perseverated and had difficulties with rigid thinking. She had reported that she had active problems with anxiety and stated that various medicines had been tried to help her with anxiety without any benefit. She had reported previously having been prescribed Seroquel by her [facility] therapist Arcelia Sloan and stated that she had stopped this medication nearly 3 months ago. She reported no recent stressors that may have contributed to her hospitalization. She had reported history of sleep apnea and reported that she had been compliant with her CPAP but had not had it adjusted or evaluated recently. She had alluded to having some excessive daytime sleepiness and fatigue at times. She denied any depressed mood at this time. She had denied any history of trauma nor had she endorsed a history of psychosis. The patient reported that she had had these unusual staring spells in the presence of her children who had expressed concern that something bad was going to happen to her mother. Inpatient psychiatric history: None Outpatient psychiatric history: She had a past history of follow-up through the [facility] for at least 10 years. She had endorsed some medication trials but is currently not on any psychotropic medications. Previous records indicate a history of PTSD autistic spectrum disorder and depression. Previous medication trials have included clonidine, Lexapro, and Seroquel. Medical history: History of POTS, hypertension, headaches, obstructive sleep apnea, dyslipidemia, asthma, fibromyalgia, Irina 1 malformation Surgeries: None reported Allergies: No known drug allergies Legal history: None Drug and alcohol history: None Social history: The patient has 3 children that had been diagnosed in the autistic spectrum. 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 She has been for several years. She had been diagnosed with autism during her childhood. She had reported that she herself had been homeschooled. She did not endorse any history of sexual physical or emotional abuse on interview. She had reported having some mild difficulties with learning particularly in mathematics. She reports growing up in [facility]. She reports having a supportive who is currently a shoe laster. Meds Home Medications and Allergies Home Medications Medication Instructions Recorded Confirmed Last Taken Type amlodipine 5 mg tablet 5 mg PO DAILY #90 tabs 07/04/22 05/21/23 Unknown Rx clonidine HCl 0.1 mg tablet 0.1 mg PO DAILY PRN tics #90 tabs 07/29/22 05/21/23 Unknown Rx albuterol sulfate 90 mcg/actuation 2 puff inhalation Q6H PRN 12/23/22 05/21/23 Unknown Rx aerosol inhaler shortness of breath #17 grams atorvastatin 10 mg tablet 10 mg PO DAILY 90 days #90 tabs 12/23/22 05/21/23 Unknown Rx montelukast 10 mg tablet 10 mg PO DAILY Asthma #90 tabs 12/23/22 05/21/23 Unknown Rx (Singulair) calcium polycarbophil 625 mg 1,250 mg PO BID PRN for abdomen 01/23/23 05/21/23 Unknown History tablet (FiberCon) health metoprolol tartrate 50 mg tablet 50 mg PO BID #180 tabs 03/16/23 05/21/23 Unknown Rx dicyclomine 20 mg tablet 20 mg PO Q8H PRN abdominal 05/21/23 05/21/23 Unknown History cramping/pain escitalopram oxalate 10 mg tablet 10 mg PO QAM 05/21/23 05/21/23 Unknown History (Lexapro) niacin 250 mg tablet,extended See Rx Instructions .Route 05/21/23 05/21/23 Unknown History release .COMPLEX Low HDL cholesterol quetiapine 25 mg tablet 25 mg PO BID PRN ANXIETY/AGITATION 05/21/23 05/21/23 Unknown History Allergies Allergy/AdvReac Type Severity Reaction Status Date / Time No Known Allergies Allergy Verified 01/06/23 15:18 Current Medications Current Medications Generic Name Dose Route Start Last Admin Trade Name Freq PRN Reason Stop Dose Admin Acetaminophen 650 mg 05/21/23 10:55 05/23/23 07:56 Acetaminophen 325 Mg Tablet PO 650 mg Q6H PRN Administration MILD PAIN Amlodipine Besylate 5 mg 05/23/23 09:00 05/23/23 08:05 Amlodipine 5 Mg Tablet PO 5 mg DAILY EMILIANA Administration Atorvastatin Calcium 20 mg 05/23/23 09:00 05/23/23 08:05 Atorvastatin 40 Mg Tablet PO 20 mg DAILY EMILIANA Administration Enoxaparin Sodium 40 mg 05/22/23 07:45 05/23/23 07:58 Enoxaparin 40 Mg/0.4 Ml Syringe SUBCUT 40 mg Q24H EMILIANA Administration Escitalopram Oxalate 10 mg 05/23/23 06:00 05/23/23 05:16 Escitalopram 10 Mg Tablet PO Not Given QAM EMILIANA Sodium Chloride 1,000 mls @ 100 mls/hr 05/21/23 09:45 05/23/23 05:14 Sodium Chloride 0.9% IV 100 mls/hr .Q10H EMILIANA Administration Metoprolol Tartrate 50 mg 05/22/23 18:00 05/23/23 08:05 Metoprolol Tartrate 50 Mg Tablet PO 50 mg BID EMILIANA Administration PFSH NPU PFSH: Medical History Agoraphobia with panic attacks Asthma Autism spectrum disorder Dyslipidemia Hearing impaired Major depressive disorder, recurrent episode, moderate with anxious distress Menorrhagia with regular cycle ALKA on CPAP POTS (postural orthostatic tachycardia syndrome) Psychiatric care PTSD (post-traumatic stress disorder) Surgical History delivery delivered X3 Hx of tonsillectomy 1986 Family History Father Cancer, Onset Age: 52 Prostate with Atkinson to bones and brain Grandmother Cancer, Onset Age: 35 breast Cancer still living at age 90 Grandmother Cancer, Onset Age: 30 pancreatic cancer Social History Smoking and tobacco status: never smoked Alcohol intake: never Substance/Drug Use: never Marital status: Number of children: 3 Current occupational status: unemployed 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 There was no evidence of any abnormal involuntary motor movements tics or tremors appreciated. There was no clear evidence of stereotypies. Her speech was monotone and quality with normal rate and volume. Her thought process was linear logical and goal-directed. Her thought content showed no evidence of active homicidal or suicidal ideation. There was no clear evidence of delusional thinking. She did not appear to be responding to internal stimuli. Her attention span appeared much improved. Her mood was described as okay. Her affect appeared euthymic. Her insight appeared at this time limited. Her judgment appeared improved. Her impulse control appeared adequate. Her recent and remote memory were grossly intact. She was alert and oriented to person place time and situation. Vitals/I&O/Wt Last Vital Signs Temp 98.4 F 05/23/23 08:00 Pulse 99 05/23/23 08:00 Resp 16 05/23/23 08:00 BP 141/81 05/23/23 08:00 Pulse Ox 96 05/23/23 08:00 O2 Del Method Room Air 05/23/23 05:40 05/22/23 05/23/23 05/23/23 22:59 06:59 14:59 Intake Total 186.667 / 1186.667 715.000 / 1901.667 Output Total 900 / 900 1600 / 2500 Balance -713.333 / 286.667 -885.000 / -598.333 Weight last 48 hrs Weight 124.398 kg Weight 89.902 kg Physical Exam Urinary Catheter Management: Roblero: Cath Placed During This Visit: yes Reason for Continuing Indwelling Catheter: Acute Urinary Retention or Obstruction Urinary Catheter Date of Insertion: 05/21/23 Urinary Catheter Time of Insertion: 07:32 Data NPU 05/23/23 05:10 05/23/23 05:10 Micro: Microbiology 05/21/23 16:40 Gram Stain - Final Cerebrospinal Fluid CSF Culture - Preliminary 05/21/23 07:55 Blood Culture - Preliminary Blood NEGATIVE TO DATE 05/21/23 07:51 Blood Culture - Preliminary Blood NEGATIVE TO DATE Microbiology 05/21/23 16:40 Cerebrospinal Fluid Gram Stain - Final 05/21/23 16:40 Cerebrospinal Fluid CSF Culture - Preliminary 05/21/23 07:55 Blood Blood Culture - Preliminary NEGATIVE TO DATE 05/21/23 07:51 Blood Blood Culture - Preliminary NEGATIVE TO DATE A&P Assessment and plan (1) Anxiety disorder: (2) Autism spectrum disorder: Plan The patient appears much improved would recommend no psychotropic intervention at this time. She may benefit from follow-up with outpatient clinic at [facility]. Attestations NPU Medical Necessity Statement*: Inpatient psychiatric hospitalization is likely not necessary at this time. Coding Level of Care Code Acute Code for [facility] Fwd Diagnoses Anxiety disorder F41.9 Autism spectrum disorder F84.0
[2023-05-23 09:30] LABS: Erythrocyte Sedimentation Rate 27 mm/hr (0-15)
[2023-05-23 09:57] LABS: C Reactive Protein 59.5 mg/L (0.0-4.9)
--- NOTE | 2023-05-23 10:03 | MRR_ITS ---
PROCEDURE INFORMATION: Exam: MR Head Without Contrast Exam date and time: 05/23/2023 1:51 PM Age: 42 years old Clinical indication: Altered mental status/memory loss and malaise or fatigue; Confusion or disorientation; Additional info: AMS TECHNIQUE: Imaging protocol: Magnetic resonance imaging of the head without contrast. COMPARISON: CT head wo con* [id number] 05/21/2023 8:17 AM FINDINGS: Brain: No acute infarct. No hemorrhage. A few nonspecific scattered T2 hyperintense foci noted within the deep white matter tracts which may reflect sequela of migraines or early sequela of chronic small vessel ischemic disease among other etiologies. No edema. Cerebral ventricles: Normal. No ventriculomegaly. Bones/joints: Unremarkable. Paranasal sinuses: Partially fluid-filled maxillary and ethmoid sinuses as well as the left frontal and sphenoid sinuses with mild mucosal thickening. Mastoid air cells: Normal as visualized. No mastoid effusion. Orbital cavities: Unremarkable. Soft tissues: Unremarkable. MR/MR head wo con* [id number] IMPRESSION: 1. No acute intracranial abnormalities. 2. Multifocal sinusitis.
[2023-05-23 10:06] LABS: Hepatitis A Antibody IgM Non-Reactive (Nonreactive); Hepatitis B Core IgM Non-Reactive (Nonreactive); Hepatitis B Surface Antigen Non-Reactive (Nonreactive); Hepatitis C Virus Antibody Non-Reactive (Nonreactive)
[2023-05-23 10:08] LABS: Rapid Plasma Reagin Syphilis Nonreactive (Nonreactive)
[2023-05-23 10:12] LABS: Procalcitonin 0.03 ng/mL (0-0.5); Vitamin B12 810 pg/mL (232-1245)
[2023-05-23 10:15] LABS: HIV 1 & 2 Antibody Non-Reactive (Non-Reactiv); HIV 1 & 2 Antigen Non-Reactive (Non-Reactiv)
[2023-05-23 10:16] LABS: Folate Level 6.2 ng/mL (4.8-37.3)
--- NOTE | 2023-05-23 16:04 | P.PN_ITS ---
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, she her , she has had 3 sons, all in their teens, 1 is in their 20s, will have autism, she tells me that she has a lot of stress at home, with cooking cleaning, and she does not want her family to see her stress, she tells me that she had an out of body experience while she was here in the hospital she could hear everything going around her, but she could not respond, she felt locked-in, she is alert oriented x3 currently following all commands, cranial nerves II to XII grossly intact, no facial droop no slurring of words, denies any headache, blurry vision, denies a history of seizures, she does report a history of Chiari malformation, no neck pain, no neck stiffness Vitals/I&O/Wt Last Vital Signs Temp 98.6 F 05/23/23 12:00 Pulse 86 05/23/23 12:00 Resp 15 05/23/23 12:00 BP 132/83 05/23/23 12:00 Pulse Ox 94 05/23/23 12:00 O2 Del Method Room Air 05/23/23 05:40 05/23/23 05/23/23 05/23/23 06:59 14:59 22:59 Intake Total 715.000 / 0003.472 4162 / 1000 Output Total 1600 / 2500 Balance -885.000 / -142.009 2062 / 1000 Weight last 48 hrs Weight 124.398 kg Weight 89.902 kg Physical Exam Const: COMMON NORMALS: no acute distress and patient oriented x3 Resp: COMMON NORMALS: normal respiratory effort, No retractions, No use of accessory muscles and clear to auscultation bilaterally AUSCULTATION: clear to auscultation bilaterally Cardio: COMMON NORMALS: regular rate, regular rhythm, S1 normal heart sound present and S2 normal heart sound present RATE: regular rate RHYTHM: regular rhythm HEART SOUNDS: S1 normal heart sound present and S2 normal heart sound present GI: COMMON NORMALS: Normal to inspection, nondistended, normoactive bowel sounds present and non-tender Extremity: COMMON NORMALS: no pedal edema Neuro: COMMON NORMALS: patient oriented x3, CN's II-XII intact bilaterally, moves all extremities and no focal motor deficits Psych: COMMON NORMALS: mental status grossly normal Urinary Catheter Management: Roblero: Cath Placed During This Visit: yes Reason for Continuing Indwelling Catheter: Acute Urinary Retention or Obstruction Urinary Catheter Date of Insertion: 05/21/23 Urinary Catheter Time of Insertion: 07:32 Data 05/23/23 05:10 05/23/23 05:10 Micro: Microbiology 05/21/23 16:40 Gram Stain - Final Cerebrospinal Fluid CSF Culture - Preliminary A&P Assessment and plan (1) Acute encephalopathy: Patient presents with acute encephalopathy. At this point no evidence for infection. CT abdomen, urinalysis, chest x-ray, lumbar puncture does not reveal any evidence of infection. Partial seizure excluded with normal EEG during events of abnormality Appreciate neurology consultation Currently verbal, following commands, cranial nerves II to XII grossly intact, will have speech therapy work with her, PT OT work with her order MRI of the brain, HIV, hep panel, folate, B12, RPR Arrange for therapy consultations. Changed to regular admission Psychiatric consultation Continue hydration (2) Metabolic acidosis: Resolved (3) Hyponatremia: Mild. TSH normal, resolved (4) Positive urine drug screen: Urine drug screen positive for THS. reports she occasionally takes Gummies. Plan History of POTS. Restart metoprolol when able. According to records this has been well-tolerated. Multiple other medical problems as outlined in past medical history Full code SCDs for DVT prophylaxis. Lovenox Ordered MRI brain, HIV, RPR, acute hep, B12, folate, Pro-Leif, sed rate, PT OT, speech therapy eval Attestations Medical Necessity Statement*: Patient requires hospitalization for acute encephalopathy Diagnoses Acute encephalopathy G93.40 Metabolic acidosis E87.20 Hyponatremia E87.1 Positive urine drug screen R82.5
--- NOTE | 2023-05-23 18:15 | PC.PT ---
Attempted PT evaluation at this time, patient sleeping soundly with spouse present, who motioned me out of the room, for discussion about spouse, spouse states patient was doing well earlier today, until CT scan, and stated patient was independent with out difficulty or deficit, without device, getting out of bed, hugging family members, and stating goodbye, and that she ambulated with good speed, without assistive devices, 300 foot distance, around end, and down to fire escape, on 2 S., trying to leave facility, and required physical restraint by her , to be held down and put into wheelchair, for return to room. Spouse stated no deficits with her physical abilities today, at that time, and this was confirmed by patient's nurse as well. Spouse feeling this is entirely psychological, and this therapist visited with psychiatrist earlier today about this case, and he questioned need of physical therapy evaluation as well. Spouse feels patient does not have physical deficits at this time, although she is indeed having difficulties, they are not physical, and he did not feel need of physical therapy intervention, and stated he would gladly contact us, through nursing, or physician should this change, therefore no further attempts will be made unless new orders are received or contacted by nursing staff regarding same. DC PT at this time.
[2023-05-24 04:00] VITALS: BP 141/89; PULSE 96; RESP 17; TEMP 36.7; O2SAT 96
[2023-05-24] MEDS: escitalopram 10 mg Tablet PO (05:51)
[2023-05-24 08:00] VITALS: BP 134/80; PULSE 106; RESP 16; TEMP 37; O2SAT 94
[2023-05-24] MEDS: enoxaparin 40 mg/0.4 mL Syringe SUBCUT (10:23)
[2023-05-24] MEDS: metoprolol tartrate 50 mg Tablet PO (10:24)
[2023-05-24] MEDS: atorvastatin 40 mg Tablet 20 MG PO (10:24)
[2023-05-24] MEDS: amlodipine 5 mg Tablet PO (10:25)
[2023-05-24 10:27] LABS: Basophils # 0.1 10^3/uL (0.0-0.1); Basophils % 0.3 %; Eosinophils # 0.1 10^3/uL (0.0-0.8); Eosinophils % 0.4 %; Hematocrit 41.4 % (36-47); Lymphocytes # 2.4 10^3/uL (0.8-4.8); Lymphocytes % 9.9 %; Mean Corpuscular HGB Conc 33.3 g/dL (30-55); Mean Corpuscular Hemoglobin 27.9 pg (27-33); Mean Corpuscular Volume 83.8 fl (85-98); Mean Platelet Volume 10.2 fL (7.4-10.4); Monocytes # 2.1 10^3/uL (0.2-0.9); Monocytes % 8.7 %; Neutrophils # 19.24 10^3/uL (1.8-7.7); Neutrophils % 80.2 %; Nucleated Red Blood Cells % 0 %; Platelet Count 563 10^3/cmm (157-399); Red Blood Count 4.94 10^6/uL (3.85-5.65); Red Cell Distribution Width 13.5 % (12.1-15.1)
[2023-05-24] MEDS: polyethylene glycol 3350 Pkt 17 gm PO (10:29)
--- NOTE | 2023-05-24 10:44 | XRR_ITS ---
PROCEDURE INFORMATION: Exam: XR Chest Exam date and time: 05/24/2023 11:30 AM Age: 42 years old Clinical indication: Condition or disease; Other: Elevated wbc TECHNIQUE: Imaging protocol: Radiologic exam of the chest. Views: 1 view. COMPARISON: CR XR chest 1V portable [id number] 05/21/2023 6:45 AM FINDINGS: Lungs: Unremarkable. No consolidation. Pleural spaces: Unremarkable. No pleural effusion. No pneumothorax. Heart/Mediastinum: Unremarkable. No cardiomegaly. Bones/joints: Unremarkable. XR/XR chest 1V portable [id number] IMPRESSION: No acute findings.
--- NOTE | 2023-05-24 10:50 | CTR_ITS ---
PROCEDURE INFORMATION: Exam: CT Cervical Spine Without Contrast Exam date and time: 05/24/2023 1:39 PM Age: 42 years old Clinical indication: Other: Leukocytosis; Additional info: Leekocytosis TECHNIQUE: Imaging protocol: Computed tomography of the cervical spine without contrast. Radiation optimization: All CT scans at this facility use at least one of these dose optimization techniques: automated exposure control; mA and/or kV adjustment per patient size (includes targeted exams where dose is matched to clinical indication); or iterative reconstruction. REPORTING DATA: Count of CT and Cardiac NM exams in prior 12 months: This patient has received 2 known CTs and 0 known cardiac nuclear medicine studies in the 12 months prior to the current study. COMPARISON: MR head wo con* [id number] 05/23/2023 1:51 PM RADIATION DOSE METRICS: Total DLP (mGy-cm): 173.27 FINDINGS: Bones/joints: Spinal alignment is normal. Vertebral body height is maintained. No significant disc narrowing. No sign of infection. No acute fracture. No bone erosion. No spinal canal stenosis. Paranasal sinuses: Fluid is seen in the dependent portion of the partially imaged sphenoid sinus. Lungs: Lung apices are clear. Soft tissues: Soft tissues in the neck and thoracic inlet are unremarkable. CT/CT cervical spin wo con* [id number] IMPRESSION: 1. No fracture or evidence of discitis or osteomyelitis in the cervical spine. 2. Fluid in the sphenoid sinus is partially imaged. Possible sinusitis.
--- NOTE | 2023-05-24 10:50 | CTR_ITS ---
PROCEDURE INFORMATION: Exam: CT Lumbar Spine Without Contrast Exam date and time: 05/24/2023 1:45 PM Age: 42 years old Clinical indication: Other: Leukocytosis TECHNIQUE: Imaging protocol: Computed tomography of the lumbar spine without contrast. Radiation optimization: All CT scans at this facility use at least one of these dose optimization techniques: automated exposure control; mA and/or kV adjustment per patient size (includes targeted exams where dose is matched to clinical indication); or iterative reconstruction. REPORTING DATA: Count of CT and Cardiac NM exams in prior 12 months: This patient has received 2 known CTs and 0 known cardiac nuclear medicine studies in the 12 months prior to the current study. COMPARISON: CT thoracic spin wo con* [id number] 05/24/2023 1:42 PM RADIATION DOSE METRICS: Total DLP (mGy-cm): 870.4 FINDINGS: Bones/joints: Spinal alignment is normal. Vertebral body height is maintained. Intervertebral disc height is maintained. Mild lower lumbar facet spondylosis. The visible portion of the pelvis and sacrum is intact. No disc herniation. No spinal canal stenosis. No sign infection. No bone erosion. Kidneys and ureters: There is a nonobstructive stone in the right kidney. Soft tissues: Paraspinal soft tissues are unremarkable. CT/CT lumbar spine wo con* [id number] IMPRESSION: No acute fracture or evidence of discitis/osteomyelitis in the lumbar spine.
--- NOTE | 2023-05-24 10:50 | USR_ITS ---
PROCEDURE INFORMATION: Exam: US Duplex Lower Extremity Veins, Bilateral Exam date and time: 05/24/2023 12:26 PM Age: 42 years old Clinical indication: Condition or disease; Other: Leokocytosis; Additional info: Leukocytosis TECHNIQUE: Imaging protocol: Real-time duplex ultrasound of the bilateral extremities with 2-D mejia scale, color Doppler flow and spectral waveform analysis including responses to compression and other maneuvers (when performed) with image documentation. Complete exam focused on the lower extremity veins. COMPARISON: US transvaginal [id number] 11/30/2019 3:08 PM FINDINGS: Right deep veins: Unremarkable. The common femoral, femoral, proximal profunda femoral and popliteal veins are patent without thrombus. Normal Doppler waveforms. Normal compressibility and/or augmentation response. Left deep veins: Unremarkable. The common femoral, femoral, proximal profunda femoral and popliteal veins are patent without thrombus. Normal Doppler waveforms. Normal compressibility and/or augmentation response. Superficial veins: Bilateral saphenofemoral junctions are patent without thrombus. Soft tissues: Unremarkable. US/CV venous duplex [facility] [id number] IMPRESSION: No evidence of deep vein thrombosis.
--- NOTE | 2023-05-24 10:50 | CTR_ITS ---
PROCEDURE INFORMATION: Exam: CT Thoracic Spine Without Contrast Exam date and time: 05/24/2023 1:42 PM Age: 42 years old Clinical indication: Other: Leukocytosis TECHNIQUE: Imaging protocol: Computed tomography of the thoracic spine without contrast. Radiation optimization: All CT scans at this facility use at least one of these dose optimization techniques: automated exposure control; mA and/or kV adjustment per patient size (includes targeted exams where dose is matched to clinical indication); or iterative reconstruction. REPORTING DATA: Count of CT and Cardiac NM exams in prior 12 months: This patient has received 2 known CTs and 0 known cardiac nuclear medicine studies in the 12 months prior to the current study. COMPARISON: CT cervical spin wo con* [id number] 05/24/2023 1:39 PM RADIATION DOSE METRICS: Total DLP (mGy-cm): 999.51 FINDINGS: Bones/joints: Spinal alignment is normal. Vertebral body height is maintained. No acute fracture. There are small dense sclerotic foci in the T12 and T7 vertebra suggesting bone islands. No bone erosion. No acute fracture. No sign of infection. Facet joints are unremarkable. No spinal canal stenosis. There are small central disc protrusions at T6-7, T7-8 and T8-9. Soft tissues: Paraspinal soft tissues are unremarkable. Visible intrathoracic soft tissues are unremarkable. Visible intra-abdominal soft tissues are unremarkable. CT/CT thoracic spin wo con* [id number] IMPRESSION: No acute fracture or evidence of discitis/osteomyelitis.
--- NOTE | 2023-05-24 10:51 | ECG_ITS ---
[facility] Test Date: 2023-05-24 Pat Name: Georgette Reid Department: Room: 270 Gender: Female [employer] Observer: : 1980 Requested By: Quentin Pena Order Number: [id number] Reading MD: Tomy Clarke Measurements Intervals [place] Rate: 80 P: 19 TX: 130 QRS: 0 QRSD: 91 T: -15 QT: 360 QTc: 418 Interpretive Statements SINUS RHYTHM VOLTAGE CRITERIA FOR LVH [MEETS CRITERIA IN ONE OF: R(aVL), S(V1), R(V5), R(V5/V6)+S(V1)] MODERATE T-WAVE ABNORMALITY, CONSIDER ANTERIOR ISCHEMIA [-0.1+ mV T-WAVE IN V3/V4] Compared to ECG 05/21/2023 08:36:48 Sinus tachycardia no longer present T-wave abnormality still present Possible ischemia still present Electronically Signed On 05-24-2023 13:10:00 CDT by Tomy Clrake [id number]
[2023-05-24 10:55] LABS: Alanine Aminotransferase 13 U/L (0-33); Albumin Level 4.1 g/dL (3.5-5.2); Alkaline Phosphatase 96 U/L (35-105); Anion Gap 17.5 (5-19); Aspartate Amino Transferase 24 U/L (0-32); Blood Urea Nitrogen 13 mg/dL (6-20); Calcium 9.1 mg/dL (8.5-10.5); Carbon Dioxide 22 mmol/L (22-29); Chloride 101 mmol/L (98-107); Globulin 3.8 g/dL (1.3-4.6); Glomerular Filtration Rate 92.2 mL/min (90-130); Glucose 165 mg/dL (65-115); Osmolality Calculated 288 mOsm/kg (285-295); Potassium 3.5 mmol/L (3.5-5.1); Sodium 137 mmol/L (136-145); Total Bilirubin 0.6 mg/dL (0.15-1.2); Total Protein 7.9 g/dL (6.6-8.7)
[2023-05-24 11:19] LABS: D Dimer 1.09 ug/mLFEU (0-0.59)
[2023-05-24 11:42] LABS: C Reactive Protein 58.6 mg/L (0.0-4.9); Ferritin 142 ng/mL (15-150); Troponin(5th) Baseline 15 ng/L (0-10)
[2023-05-24 11:50] LABS: Procalcitonin 0.06 ng/mL (0-0.5)
[2023-05-24 11:56] VITALS: BP 141/84; PULSE 86; RESP 17; TEMP 37.2; O2SAT 95
[2023-05-24 12:38] LABS: Add Urine Culture? No; Add Urine Microscopic? YES; Bacteria Urine TRACE /hpf; Bilirubin Urine Neg (Negative); Blood Urine 2+ (Negative); Glucose Urine UA Trace (Normal); Ketones Urine 2+ (Negative); Leukocyte Esterase Urine Negative (Negative); Mucus Urine 1+ /hpf; Nitrate Urine Negative (Negative); Protein Urine Neg (Negative); RBC Urine 0-4 /hpf (0-2); Urine Appearance Clear (CLEAR); Urine Color Straw (Yellow); Urobilinogen Urine Norm (Negative); WBC Urine 0-4 /hpf (0-5); pH Urine 5 (5-7)
--- NOTE | 2023-05-24 13:15 | CTR_ITS ---
PROCEDURE INFORMATION: Exam: CTA Chest With Contrast Exam date and time: 05/24/2023 1:49 PM Age: 42 years old Clinical indication: Other: Leukocytosis, elevated dimer; Additional info: Lekocytosis, elevated dimer TECHNIQUE: Imaging protocol: Computed tomographic angiography of the chest with contrast. Exam focused on the arteries. 3D rendering (Not supervised by radiologist): MIP and/or 3D reconstructed images were created by the technologist. Radiation optimization: All CT scans at this facility use at least one of these dose optimization techniques: automated exposure control; mA and/or kV adjustment per patient size (includes targeted exams where dose is matched to clinical indication); or iterative reconstruction. Contrast material: OMNI 350; Contrast volume: 73 ml; Contrast route: INTRAVENOUS (IV); REPORTING DATA: Count of CT and Cardiac NM exams in prior 12 months: This patient has received 2 known CTs and 0 known cardiac nuclear medicine studies in the 12 months prior to the current study. COMPARISON: CT angio chest PE protcl [id number] 10/07/2018 6:44 PM RADIATION DOSE METRICS: Total DLP (mGy-cm): 387.38 FINDINGS: Pulmonary arteries: Pulmonary arteries are adequately opacified for evaluation through the segmental level. Subsegmental vessels are obscured. There is no filling defect to suggest embolism. Aorta: The aorta is unremarkable. There is no aneurysm. Lungs: There is no consolidation. Pleural spaces: There is no pleural effusion or pneumothorax. Heart: Heart size is normal. There is no pericardial effusion. Lymph nodes: There is no mediastinal or hilar lymphadenopathy. Stomach and bowel: There is subtle pericolonic edema in the left upper quadrant. Bones/joints: Bones are unremarkable. Soft tissues: The extrathoracic soft tissues are unremarkable. CT/CT angio chest PE protcl [id number] IMPRESSION: 1. No pulmonary embolism. 2. Subtle pericolonic edema in the left upper quadrant. Possible colitis.
--- NOTE | 2023-05-24 13:16 | PM.PN ---
Subjective Subjective: - Was seen this morning - at bedside -She is alert to person, to place, to time, she easily becomes overwhelmed -She describes having some sort of reaction to some of her p.o. medications, but she is not exactly sure what medication it was -Denies any headache, no blurry vision, no neck pain, no neck stiffness -Has a milkshake that her brought from home, with strawberries and bananas, she is delighted to drink -She did not get any sleep last night and was started on Ambien 5 mg at bedtime -She has a leukocytosis up to 24,000, afebrile overnight, UA ordered, unremarkable, chest x-ray ordered, unremarkable, given her episodes of alteration of her mentation, admitted to a [facility] spinal CT to rule out a spinal abscess, discitis, her D-dimer is elevated at 1, venous ultrasound negative for DVT, will not order a CT angiogram of her chest, given her persistent episodes of alteration of mentation I will order amylase, CMV, herpes simplex viral DNA under CSF, plasma metanephrines, urine metanephrine, tick panel,metalheavy heavy metals, catecholamines Vitals/I&O/Wt Last Vital Signs Temp 98.9 F 05/24/23 11:56 Pulse 86 05/24/23 11:56 Resp 17 05/24/23 11:56 BP 141/84 05/24/23 11:56 Pulse Ox 95 05/24/23 11:56 O2 Del Method Room Air 05/24/23 11:56 05/23/23 05/24/23 05/24/23 22:59 06:59 14:59 Intake Total 1120 / 1120 Output Total 750 / 750 Balance 1120 / 1120 -750 / -750 Weight last 48 hrs Weight 92.351 kg Weight 124.398 kg Physical Exam Const: COMMON NORMALS: no acute distress and patient oriented x3 Resp: COMMON NORMALS: normal respiratory effort, No retractions, No use of accessory muscles and clear to auscultation bilaterally AUSCULTATION: clear to auscultation bilaterally Cardio: COMMON NORMALS: regular rate, regular rhythm, S1 normal heart sound present and S2 normal heart sound present RATE: regular rate RHYTHM: regular rhythm HEART SOUNDS: S1 normal heart sound present and S2 normal heart sound present GI: COMMON NORMALS: Normal to inspection, nondistended, normoactive bowel sounds present and non-tender Extremity: COMMON NORMALS: no pedal edema Neuro: COMMON NORMALS: patient oriented x3, CN's II-XII intact bilaterally, moves all extremities and no focal motor deficits Psych: COMMON NORMALS: mental status grossly normal Urinary Catheter Management: Roblero: Cath Placed During This Visit: yes Reason for Continuing Indwelling Catheter: Acute Urinary Retention or Obstruction Urinary Catheter Date of Insertion: 05/21/23 Urinary Catheter Time of Insertion: 07:32 Data 05/24/23 10:08 05/24/23 10:08 Micro: Microbiology 05/24/23 11:23 Blood Culture - Preliminary Blood SPECIMEN COLLECTED 05/24/23 11:17 Blood Culture - Preliminary Blood SPECIMEN COLLECTED 05/21/23 16:40 Gram Stain - Final Cerebrospinal Fluid CSF Culture - Final A&P Assessment and plan (1) Acute encephalopathy: Patient presents with acute encephalopathy. resolving, mentation improving, At this point no evidence for infection. CT abdomen, urinalysis, chest x-ray, lumbar puncture does not reveal any evidence of infection. Partial seizure excluded with normal EEG during events of abnormality Appreciate neurology consultation Currently verbal, following commands, cranial nerves II to XII grossly intact, will have speech therapy work with her, PT OT work with her order MRI of the brain A few nonspecific scattered T2 hyperintense foci noted within the deep white matter tracts which may reflect sequela of migraines or early sequela of chronic small vessel ischemic disease among other etiologies. -Possible MS? We will have her follow-up with neurology Arrange for therapy consultations. Changed to regular admission Psychiatric consultation Continue hydration (2) Metabolic acidosis: Resolved (3) Hyponatremia: Mild. TSH normal, resolved (4) Positive urine drug screen: Urine drug screen positive for THS. reports she occasionally takes Gummies. (5) Leukocytosis: - Patient has persistent leukocytosis of undetermined etiology -Repeat UA negative -Repeat chest x-ray within normal limits -Lumbar puncture CSF studies within normal limits, cultures so far negative -I would add a HSV to the lumbar puncture studies -We will consider acyclovir based on clinical progress -First blood cultures no growth so far we will repeat blood cultures -Given her alteration of mentation as above, I am to do a monson spinal CT -She does have elevated D-dimer, I will order CT angiogram of the chest -Venous ultrasound negative for DVT -Viral respiratory panel -CMV -Plasma urine metanephrines -Order ceruloplasmin MRI of the brain A few nonspecific scattered T2 hyperintense foci noted within the deep white matter tracts which may reflect sequela of migraines or early sequela of chronic small vessel ischemic disease among other etiologies. 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 -Monocytes are elevated, will order a peripheral smear -Can consider tagged white blood cell scan based on clinical progress Plan -She has a leukocytosis up to 24,000, afebrile overnight, UA ordered, unremarkable, chest x-ray ordered, unremarkable, given her episodes of alteration of her mentation, admitted to a m[facility] spinal CT to rule out a spinal abscess, discitis, her D-dimer is elevated at 1, venous ultrasound negative for DVT, will not order a CT angiogram of her chest, given her persistent episodes of alteration of mentation I will order amylase, CMV, herpes simplex viral DNA under CSF, plasma metanephrines, urine metanephrine, tick panel,metalheavy heavy metals, catecholamines --She did not get any sleep last night and was started on Ambien 5 mg at bedtime Attestations Medical Necessity Statement*: Patient requires hospitalization for altered mental status, with leukocytosis of undetermined etiology Diagnoses Acute encephalopathy G93.40 Metabolic acidosis E87.20 Hyponatremia E87.1 Positive urine drug screen R82.5 Leukocytosis D72.829
[2023-05-24 13:21] LABS: Troponin 5 2HR 12.61 ng/L (0-10)
[2023-05-24 13:23] LABS: Troponin 5 2HR Delta -2.39 ABS# (0-10)
[2023-05-24] MEDS: iohexol 350 mg/mL 500 mL Btl (per mL) IV (13:53)
[2023-05-24 14:07] LABS: Adenovirus Not Detected (NOT DETECT); Chlamydia Pneumoniae Not Detected (NOT DETECT); Coronavirus 229E,HKU1,NL63,OC4 Not Detected (NOT DETECT); Human Metapneumovirus Not Detected (NOT DETECT); Human Rhinovirus/Enterovirus Not Detected (NOT DETECT); Influenza A Not Detected (NOT DETECT); Influenza A H1 Not Detected (NOT DETECT); Influenza A H1-2009 Not Detected (NOT DETECT); Influenza A H3 Not Detected (NOT DETECT); Influenza B Not Detected (NOT DETECT); Mycoplasma Pneumoniae Not Detected (NOT DETECT); Parainfluenza Virus Type 1 Not Detected (NOT DETECT); Parainfluenza Virus Type 2 Not Detected (NOT DETECT); Parainfluenza Virus Type 3 Not Detected (NOT DETECT); Parainfluenza Virus Type 4 Not Detected (NOT DETECT); Respiratory Syncytial Virus A Not Detected (NOT DETECT); Respiratory Syncytial Virus B Not Detected (NOT DETECT); SARS-COV-2 Not Detected (NOT DETECT)
--- NOTE | 2023-05-24 14:44 | ECG_ITS ---
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1980 Requested By: Quentin Pena Order Number: [id number] Reading MD: Tomy Clarke Measurements Intervals [place] Rate: 93 P: 0 HI: 133 QRS: 65 QRSD: 86 T: 75 QT: 362 QTc: 451 Interpretive Statements SINUS RHYTHM POSSIBLE RIGHT VENTRICULAR CONDUCTION DELAY [RSR (QR) IN V1/V2] NONSPECIFIC T-WAVE ABNORMALITY Compared to ECG 05/24/2023 11:38:24 Left ventricular hypertrophy no longer present Possible ischemia no longer present T-wave abnormality still present Electronically Signed On 05-24-2023 17:02:05 CDT by Tomy Clarke [id number]
[2023-05-24 14:45] LABS: LAB Peripheral Smear Sent for Review
[2023-05-24 14:46] LABS: Ammonia 22 umol/L (11-51)
[2023-05-24 15:26] LABS: Amylase 68 U/L (28-100)
[2023-05-24 16:00] VITALS: BP 142/81; PULSE 93; RESP 17; TEMP 37.9; O2SAT 94
[2023-05-24 16:48] LABS: Troponin 5 6HR 26.09 ng/L (0-10)
[2023-05-24 16:49] LABS: Troponin 5 6HR Delta 11.09 ng/L (0-12)
--- NOTE | 2023-05-24 16:51 | ECG_ITS ---
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
[2023-05-24] MEDS: sodium chloride 0.9% 1,000 ML 100 ML IV (18:34)
[2023-05-24 20:00] VITALS: BP 162/98; PULSE 93; RESP 19; TEMP 36.6; O2SAT 95
[2023-05-24 22:00] VITALS: PULSE 97
[2023-05-24] MEDS: zolpidem 5 mg Tablet PO (22:58)
[2023-05-24] MEDS: acetaminophen 325 mg Tablet 650 MG PO (23:44)
[2023-05-25] VITALS: BP 167/97; PULSE 104; RESP 18; TEMP 36.4; O2SAT 93
[2023-05-25 04:00] VITALS: BP 138/78; PULSE 82; RESP 17; TEMP 36.6; O2SAT 94
[2023-05-25] MEDS: sodium chloride 0.9% 1,000 ML 100 ML IV (04:25)
[2023-05-25 05:00] LABS: Basophils # 0.1 10^3/uL (0.0-0.1); Basophils % 0.4 %; Eosinophils # 0.1 10^3/uL (0.0-0.8); Eosinophils % 0.9 %; Hematocrit 36.7 % (36-47); Lymphocytes # 2.5 10^3/uL (0.8-4.8); Mean Corpuscular HGB Conc 32.7 g/dL (30-55); Mean Corpuscular Hemoglobin 27.6 pg (27-33); Mean Corpuscular Volume 84.6 fl (85-98); Mean Platelet Volume 10.5 fL (7.4-10.4); Monocytes # 1.5 10^3/uL (0.2-0.9); Monocytes % 10.1 %; Neutrophils # 10.62 10^3/uL (1.8-7.7); Neutrophils % 71.1 %; Nucleated Red Blood Cells % 0 %; Platelet Count 407 10^3/cmm (157-399); Red Blood Count 4.34 10^6/uL (3.85-5.65); Red Cell Distribution Width 13.4 % (12.1-15.1); White Blood Count 14.94 10^3/uL (3.29-11.43)
[2023-05-25 05:18] LABS: Blood Urea Nitrogen 11 mg/dL (6-20); C Reactive Protein 28.2 mg/L (0.0-4.9); Calcium 8.3 mg/dL (8.5-10.5); Carbon Dioxide 24 mmol/L (22-29); Chloride 104 mmol/L (98-107); Glucose 93 mg/dL (65-115); Magnesium 1.9 mg/dL (1.7-2.3); Osmolality Calculated 291 mOsm/kg (285-295); Sodium 141 mmol/L (136-145)
[2023-05-25 05:23] LABS: Procalcitonin 0.03 ng/mL (0-0.5)
[2023-05-25 06:00] VITALS: PULSE 120
[2023-05-25 07:45] VITALS: BP 163/89; PULSE 101; RESP 18; TEMP 36.6; O2SAT 93
[2023-05-25] MEDS: metoprolol tartrate 50 mg Tablet PO (08:39)
[2023-05-25] MEDS: amlodipine 5 mg Tablet PO (08:39)
[2023-05-25] MEDS: atorvastatin 40 mg Tablet 20 MG PO (08:39)
[2023-05-25 10:02] VITALS: PULSE 101
--- NOTE | 2023-05-25 10:02 | PC.NURSE ---
Tele HR reading 160's, Apically 101.
--- NOTE | 2023-05-25 10:36 | PC.NURSE ---
Tele reading check electrodes, this nurse entered into room. Pt in chair dressed and stating she was needed disconnected and going home. holding to bags of belongings in middle of room. Informed CN and Fletcher. Educated pt that leaving AMA was not recommended. Pt states she was fine and going home to see her babies. This nurse stated would get supplies to disconnect IV and hobson, pt stated she would just pull them out, it didnt hurt going in and it won't hurt coming out. Educated that there is an inflated balloon on hobson and it would do damage and hurt. Pt stated OK just go get the stuff. This nurse removed hobson and IV, pt said thanks and left with .
[2023-05-26 11:23] LABS: Ceruloplasmin 35 mg/dL (18-53)
[2023-05-26 12:04] LABS: Lyme AB Screen <0.90 index
[2023-05-27 11:44] LABS: HSV 1 IGG Type Specific AB <0.90 index; HSV 2 IGG Type Specific AB <0.90 index
[2023-05-28 14:30] LABS: Cytomegalovirus Antibody (IGG) <0.60 U/mL; Cytomegalovirus Antibody (IGM) <30.00 AU/mL
[2023-05-29 10:58] LABS: Metanephrine Total Free 103 pg/mL (<=205)
[2023-05-29 16:40] LABS: E. Chaffeensis AB IGG <1:64; E. Chaffeensis AB IGM <1:20
[2023-05-29 16:55] LABS: RMSF IGG NOT DETECTED; RMSF IGM NOT DETECTED
[2023-06-10 16:20] LABS: Dopamine Level <10 pg/mL; Epinephrine Level 78 pg/mL; Norepinephrine Level 364 pg/mL; Total Catecholamines 442 pg/mL
[2023-06-16 16:26] LABS: HSV 1 DNA NOT DETECTED; HSV 2 DNA NOT DETECTED; HSV Source CEREBROSPINAL FLUID
[2023-06-19 12:25] LABS: Metal Acute Poison Antimony 3.5 mcg/L; Metal Acute Poison Arsenic None Detected mcg/L; Metal Acute Poison Bismuth None Detected mcg/L; Metal Acute Poison Copper 100 mcg/dL; Metal Acute Poison Mercury None Detected mcg/L; Metal Acute Poison Molybden None Detected mcg/L; Metal Acute Poison Nickel (B) None Detected mcg/L; Metal Acute Poison Selenium 150 mcg/L; Metal Acute Poison Tellurium None Detected mcg/L; Metal Acute Poison Zinc 530 mcg/dL; Metal Acute Poisoning Cadmium None Detected mcg/L; Metal Acute Poisoning Chromium None Detected mcg/L; Metal Acute Poisoning Cobalt None Detected mcg/L
== END 2023-05-25 10:20 | disposition left against medical advice (07) | DRG 71 ==
LOC: ER 06:56 → ICU 10:34 → MEDSURG 05-23 08:34 → ICU 05-24 06:57 → MEDSURG 05-24 06:59
PROVIDERS: Family Medicine; Admitting Provider Internal Medicine; Emergency Provider Family Medicine; PCP Family Medicine Adult Medicine; Visit Provider Student in an Organized Health Care Education/Training Program
DX: G93.40 Encephalopathy, unspecified (principal); E87.1 Hypo-osmolality and hyponatremia; E87.20 Acidosis, unspecified; F84.0 Autistic disorder; F33.1 Major depressive disorder, recurrent, moderate; Z53.29 Procedure and treatment not carried out because of patient's decision for other reasons; F12.90 Cannabis use, unspecified, uncomplicated; F40.01 Agoraphobia with panic disorder; J45.909 Unspecified asthma, uncomplicated; E78.5 Hyperlipidemia, unspecified; G47.33 Obstructive sleep apnea (adult) (pediatric); Z99.89 Dependence on other enabling machines and devices; F43.10 Post-traumatic stress disorder, unspecified; G90.A Postural orthostatic tachycardia syndrome [POTS]
CPT/HCPCS: 36415; 36416; 36600; 51702; 62328; 70450; 70551; 71045; 71275; 72125; 72128; 72131; 74176; 80048; 80051; 80053; 80074; 80306; 80307; 80503; 81001; 82009; 82140; 82150; 82175; 82300; 82330; 82384; 82390; 82495; 82525; 82550; 82607; 82728; 82746; 82805; 82945; 82962; 83018; 83605; 83690; 83735; 83825; 83835; 83885; 84145; 84157; 84255; 84443; 84484; 84630; 84703; 85025; 85378; 85651; 86140; 86592; 86618; 86666; 86695; 86696; 86757; 87040; 87070; 87075; 87205; 87486; 87530; 87581; 87633; 87806; 89050; 92526; 92610; 93005; 93970; 96365; 96372; 97168; 99285; G0378; J0696; J1650; J2060; J2550; J3490; J7030; Q9967

== ENCOUNTER → 2023-07-31 10:39 | Outpatient (BNVA) | payer OTHER, SELFPAY | PROVIDERS: PCP Family Medicine Adult Medicine; Visit Provider Nurse Practitioner Psychiatric/Mental Health | DX: Z79.899 Other long term (current) drug therapy (principal); F20.0 Paranoid schizophrenia; F84.0 Autistic disorder | CPT/HCPCS: 80053; 80061; 83036 ==

== ENCOUNTER → 2023-08-28 15:12 | Outpatient (BNVA) | payer SELFPAY | PROVIDERS: PCP Family Medicine Adult Medicine; Visit Provider Family Medicine Adult Medicine | DX: E78.5 Hyperlipidemia, unspecified (principal); E87.6 Hypokalemia; G93.40 Encephalopathy, unspecified; F20.0 Paranoid schizophrenia; F84.0 Autistic disorder; G47.33 Obstructive sleep apnea (adult) (pediatric); Z99.89 Dependence on other enabling machines and devices; J45.40 Moderate persistent asthma, uncomplicated; H90.3 Sensorineural hearing loss, bilateral | CPT/HCPCS: 80048 ==